=== PATIENT | female | born 1945 | race Caucasian/White ===

== ENCOUNTER 2019-03-22 05:22 | Inpatient (IN) | payer MEDICARE, MEDICAID ==
[~2019-03-22] VITALS: Ht 170.2 cm; Wt 58.2 kg
[~2019-03-22 05:22] MED LIST: BACL10TA2 PO; BUTA1CAP17; DIL100C PO; ERGO500014 PO; FURO-150 PO; HYDR-4353 PO; LEVO50TA8 PO; LOP25T PO; LORA1TAB PO; LORA2TAB PO; MAGN400T28 PO; MECL-111 PO; METO10TA3 PO; OXYC-657 PO; PRED20TA PO; PREG150C PO; VALS40TA2 PO; [UNRECOGNIZED DRUG - CODE] PO
[2019-03-22] MEDS ORDERED: ondansetron/PF 4mg/2ml inj IV ONE (05:50)
[2019-03-22] MEDS ORDERED: normal saline 1000ML IV soln IVB ONE ×2 (05:50→06:25)
[2019-03-22] MEDS ORDERED: morphine 4 MG/ML inj SYRINge IV PRN (05:50)
[2019-03-22 06:23] LABS: BASOPHILS % (AUTO) 0.4 % (0-1); EOSINOPHILS % (AUTO) 0.7 % (0-6); HEMATOCRIT 34.1 % (35.0-45.0); HEMOGLOBIN 11.8 g/dl (12.0-16.0); LYMPHOCYTES # (AUTO) 0.4 X10'3 (1.1-4.8); LYMPHOCYTES % (AUTO) 8.8 % (21-51); MEAN CORPUSCULAR HEMOGLOBIN 33.2 PG (27.0-31.0); MEAN CORPUSCULAR HGB CONC 34.8 g/dL (33.0-36.5); MEAN CORPUSCULAR VOLUME 95.4 FL (78-98); MEAN PLATELET VOLUME 9.3 FL (7.4-10.4); MONOCYTES # (AUTO) 0.3 X10'3 (0-0.9); MONOCYTES % (AUTO) 5.8 % (2-12); NEUTROPHILS # (AUTO) 4.2 X10'3 (1.8-7.7); NEUTROPHILS % (AUTO) 84.3 % (42-75); PLATELET COUNT 193 X10'3 (140-440); RED BLOOD COUNT 3.57 X10'6 (4.20-5.60); RED CELL DISTRIBUTION WIDTH 12.4 % (11.5-14.5)
[2019-03-22 06:52] LABS: CLARITY,URINE CLEAR (Clear); COLOR,URINE YELLOW (Yellow); GLUCOSE, URINE NEGATIVE (Neg); KETONES,URINE NEGATIVE (Neg); LEUKOCYTE ESTERASE ,URINE NEGATIVE (Neg); NITRITES, URINE NEGATIVE (Neg); OCCULT BLOOD,URINE NEGATIVE (Neg); PROTEIN,URINE NEGATIVE (Neg); UROBILINOGEN,URINE 0.2 E.U/dL (0.2-1.0)
[2019-03-22 06:54] LABS: UA COLLECTION TYPE CLN CATCH MIDSTREAM
[2019-03-22] MEDS ORDERED: piperacillin/tazo 3.375gm/50ml 50 ML IV ONE (07:00)
[2019-03-22] MEDS ORDERED: HYDROmorphone inj. 0.5 MG/0.5 ML DISP.SYRIN IV ONE (08:05)
[2019-03-22 08:38] LABS: ALANINE AMINOTRANSFERASE 17 U/L (12-78); ALBUMIN 3.7 G/DL (3.4-5.0); ALBUMIN/GLOBULIN RATIO 1.2 (1.1-1.5); ALKALINE PHOSPHATASE 95 IU/L (46-116); ANION GAP 9 (8-16); ASPARTATE AMINO TRANSFERASE 13 U/L (10-37); BILIRUBIN,TOTAL 0.3 MG/DL (0.1-1.0); BLOOD UREA NITROGEN 13 MG/DL (7-18); CALCIUM 8.4 MG/DL (8.5-10.1); CHLORIDE 102 MMOL/L (99-107); CREATININE 1.08 MG/DL (0.40-0.90); GLUCOSE 105 MG/DL (70-104); LIPASE 137 U/L (73-393); POTASSIUM 4.1 MMOL/L (3.5-5.1); SODIUM 135 MMOL/L (135-145); TOTAL CARBON DIOXIDE 24.5 MMOL/L (24-32); TOTAL PROTEIN 6.7 G/DL (6.4-8.2); eGFR 50 ML/MIN
[2019-03-22] MEDS ORDERED: diphenhydrAMINE 50 mg/ml inj IV PRN (10:40)
[2019-03-22] MEDS ORDERED: mag hydrox/Alum hydrox/simeth 30ml oral suspension PO PRN (10:40)
[2019-03-22] MEDS ORDERED: HYDROmorphone inj. 0.5 MG/0.5 ML DISP.SYRIN IV PRN (10:40)
[2019-03-22] MEDS ORDERED: bisacodyl 10mg suppository rectal RC PRN (10:40)
[2019-03-22] MEDS ORDERED: magnesium 4gm in 100ml NS 100 ML IV PRN (10:40)
[2019-03-22] MEDS ORDERED: potassium Cl 20 mEq SR tablet PO PRN ×2 (10:40)
[2019-03-22] MEDS ORDERED: HYDROcodone/acetaminophen 5mg/325mg tablet PO PRN (10:40)
[2019-03-22] MEDS ORDERED: magnesium Cl slow-release 64mg tablet PO PRN (10:40)
[2019-03-22] MEDS ORDERED: metoclopramide 5 mg/ml inj IV PRN (10:40)
[2019-03-22] MEDS ORDERED: magnesium hydroxide 30ml (MOM) UD suspension PO PRN (10:40)
[2019-03-22] MEDS ORDERED: magnesium 2GM in 50ml NS 50 ML IV PRN (10:40)
[2019-03-22] MEDS ORDERED: acetaminophen 325mg tablet PO PRN ×2 (10:40)
[2019-03-22] MEDS ORDERED: acetaminophen 650mg rectal suppository RC PRN (10:40)
[2019-03-22] MEDS ORDERED: potassium CL 10mEq/100ml bag 100 ML IV PRN ×2 (10:40)
[2019-03-22] MEDS ORDERED: TERI2.4P SQ (11:23)
[2019-03-22] MEDS ORDERED: PRED10TA PO (11:23)
[2019-03-22] MEDS ORDERED: BUPR1PAT9 TOP (11:25)
[2019-03-22] MEDS: HYDROcodone/acetaminophen 10/325mg tab PO PRN (11:59)
--- NOTE | 2019-03-22 12:33 | NUR ---
Patient in room ED 6. I have received report from KENNY Downing and had the opportunity to ask questions and assume patient care. Addendum: 03/22/19 at 1234 by Luis Fernando Erickson RN Awaiting patient arrival to room 355b.
[2019-03-22 12:45] VITALS: BP 137/65
--- NOTE | 2019-03-22 12:45 | NUR ---
received patient to room 355a via wheelchair accompanied by x1 staff. patient a&o and oriented to room and call light. call light within patient's reach. she does c/o abd pain that is 7/10. norco was given in er prior to transfer and patient states has been ineffective. will administer pain med as ordered.
[2019-03-22] MEDS: HYDROmorphone 1 mg/ml syringe IV PRN ×2 (12:52→20:57)
[2019-03-22] MEDS ORDERED: ERGO500056 PO (13:15)
[2019-03-22] MEDS ORDERED: BUPRENORPHINE TP SCH (13:55)
[2019-03-22] MEDS ORDERED: meclizine 12.5mg tablet PO PRN (13:55)
[2019-03-22] MEDS ORDERED: metoclopramide 10mg tablet PO PRN (13:55)
[2019-03-22] MEDS: ringers solution, lacted 1,000 ML IV SCH (14:04)
[2019-03-22] MEDS ORDERED: butalbital/acetaminophen/caffeine (Fioricet) tablet PO PRN (14:10)
[2019-03-22] MEDS: piperacillin/tazo 3.375gm/50ml 50 ML IV SCH ×2 (16:15→23:39)
[2019-03-22] MEDS: ondansetron/PF 4mg/2ml inj IV PRN (18:21)
--- NOTE | 2019-03-22 18:29 | NUR ---
Problems reprioritized. Patient report given, questions answered & plan of care reviewed with KENNY Canela.
--- NOTE | 2019-03-22 18:33 | NUR ---
Patient in room RANJIT 355. I have received report from KENNY Ellis and had the opportunity to ask questions and assume patient care. Addendum: 03/22/19 at 1835 by Hilton Handy RN Report was received from KENNY Gould
[2019-03-22] MEDS: docusate sod 100mg capsule PO SCH (19:44)
[2019-03-22] MEDS: metoprolol tartrate 12.5mg (1/2 tablet) PO SCH (19:44)
[2019-03-22 20:00] VITALS: BP 139/71
[2019-03-22] MEDS ORDERED: metoprolol tartrate 25mg tablet PO SCH (20:00)
[2019-03-22] MEDS: K and/or MAG REPLACEMENT MC SCH (20:00)
[2019-03-22] MEDS: phenytoin sod ER 100mg capsule PO SCH (20:55)
[2019-03-22] MEDS: temazepam 15mg capsule PO PRN (20:55)
[2019-03-22] MEDS ORDERED: temazepam 15mg capsule PO PRN (21:00)
[2019-03-22] MEDS: diphenhydrAMINE 25mg capsule PO PRN (22:10)
[2019-03-23 00:36] VITALS: BP 123/66
[2019-03-23] MEDS: butalbital/acetaminophen/caffeine (Fioricet) tablet PO PRN ×3 (01:07→22:37)
[2019-03-23] MEDS: ringers solution, lacted 1,000 ML IV SCH ×2 (01:33→14:45)
[2019-03-23] MEDS: HYDROmorphone 1 mg/ml syringe IV PRN ×5 (03:17→22:10)
[2019-03-23] MEDS: diphenhydrAMINE 25mg capsule PO PRN ×2 (04:19→17:16)
--- NOTE | 2019-03-23 06:00 | NUR ---
Problems reprioritized. Patient report given, questions answered & plan of care reviewed with KENNY Gould.
--- NOTE | 2019-03-23 06:24 | NUR ---
Patient in room RANJIT 355. I have received report from KENNY Canela and had the opportunity to ask questions and assume patient care.
[2019-03-23 07:00] VITALS: BP 132/76
[2019-03-23] MEDS: prednisone 10mg tablet PO SCH (07:48)
[2019-03-23] MEDS: levoTHYROXINE 25mcg tablet PO SCH (07:48)
[2019-03-23] MEDS: metoprolol tartrate 12.5mg (1/2 tablet) PO SCH ×2 (07:48→20:36)
[2019-03-23] MEDS: piperacillin/tazo 3.375gm/50ml 50 ML IV SCH ×2 (07:48→15:13)
[2019-03-23] MEDS: docusate sod 100mg capsule PO SCH ×2 (07:48→20:36)
[2019-03-23] MEDS: magnesium oxide 400mg tablet PO SCH (07:48)
[2019-03-23] MEDS: enoxaparin 40mg/0.4ml syringe SQ SCH (07:49)
[2019-03-23] MEDS: K and/or MAG REPLACEMENT MC SCH ×2 (07:50→20:00)
[2019-03-23] MEDS: baclofen 10mg tablet PO PRN ×2 (09:22→20:37)
[2019-03-23 09:30] LABS: BASOPHILS % (AUTO) 1.1 % (0-1); EOSINOPHILS # (AUTO) 0.1 X10'3 (0-0.9); EOSINOPHILS % (AUTO) 1.9 % (0-6); HEMATOCRIT 30.1 % (35.0-45.0); HEMOGLOBIN 10.4 g/dl (12.0-16.0); LYMPHOCYTES # (AUTO) 0.5 X10'3 (1.1-4.8); LYMPHOCYTES % (AUTO) 15.3 % (21-51); MEAN CORPUSCULAR HGB CONC 34.7 g/dL (33.0-36.5); MEAN CORPUSCULAR VOLUME 95.1 FL (78-98); MEAN PLATELET VOLUME 7.7 FL (7.4-10.4); MONOCYTES # (AUTO) 0.4 X10'3 (0-0.9); MONOCYTES % (AUTO) 9.9 % (2-12); NEUTROPHILS # (AUTO) 2.6 X10'3 (1.8-7.7); NEUTROPHILS % (AUTO) 71.8 % (42-75); PLATELET COUNT 178 X10'3 (140-440); RED BLOOD COUNT 3.16 X10'6 (4.20-5.60); RED CELL DISTRIBUTION WIDTH 12.5 % (11.5-14.5); WHITE BLOOD COUNT 3.6 X10'3 (4.5-11.0)
[2019-03-23 09:53] LABS: ALANINE AMINOTRANSFERASE 20 U/L (12-78); ALBUMIN 3.5 G/DL (3.4-5.0); ALBUMIN/GLOBULIN RATIO 1.1 (1.1-1.5); ALKALINE PHOSPHATASE 85 IU/L (46-116); ANION GAP 8 (8-16); ASPARTATE AMINO TRANSFERASE 26 U/L (10-37); BILIRUBIN,TOTAL 0.3 MG/DL (0.1-1.0); BLOOD UREA NITROGEN 5 MG/DL (7-18); BUN/CREATININE RATIO 4.7 (6.6-38.0); CALCIUM 8.4 MG/DL (8.5-10.1); CHLORIDE 100 MMOL/L (99-107); CREATININE 1.07 MG/DL (0.40-0.90); GLUCOSE 134 MG/DL (70-104); MAGNESIUM 1.5 MG/DL (1.5-2.4); PHOSPHORUS 2.9 MG/DL (2.3-4.5); POTASSIUM 3.5 MMOL/L (3.5-5.1); SODIUM 135 MMOL/L (135-145); TOTAL CARBON DIOXIDE 26.8 MMOL/L (24-32); TOTAL PROTEIN 6.6 G/DL (6.4-8.2); eGFR 50 ML/MIN
[2019-03-23 11:00] VITALS: BP 131/72
[2019-03-23] MEDS: losartan 25mg tablet PO SCH (11:48)
[2019-03-23] MEDS: HYDROcodone/acetaminophen 10/325mg tab PO PRN ×2 (11:49→20:36)
[2019-03-23] MEDS: ondansetron/PF 4mg/2ml inj IV PRN (14:45)
[2019-03-23] MEDS ORDERED: LORazepam 0.5 MG tablet PO PRN (15:00)
--- NOTE | 2019-03-23 15:25 | NUR ---
Malnutrition Consult: Pt admitted for colitis with decreased appetite and vomiting last few weeks with no edema. Pt well nourished and well developed per MD. RD visited pt at bedside. Pt does not appear to have visible fat or muscle wasting. Pt states that diagnosed with IBS 10 years ago and with colitis for 4 years. Pt states a weight loss of 84 pounds in a year, however states that her UBW prior to her shelter a few years ago is 130-140 pounds. Pt reports weight gain occurred after retiring up to 170 pounds and lost the weight and is back at her UBW. Pt states that she is not concerned about weight loss. Pt does not meet minimum criteria for malnutrition at this time. Pt agrees to strawberry and chocolate flavored Ensure Enlive TIDWM once diet is advanced. RD provided pt with a written low-FODMAP education handout and RD contact information with verbal review. Pt encouraged to eat foods on the "recommended" list and slowly introduce the food on the "not recommended" list one at a time to determine the foods that trigger the IBS symptoms. Will continue to follow. Addendum: 03/23/19 at 1526 by Wing Neyda ROBBINS Amended: Links added. Addendum: 03/23/19 at [address] ITZEL agree with international sales representative note
[2019-03-23] MEDS ORDERED: BUPRENORPHINE TP SCH (16:00)
--- NOTE | 2019-03-23 19:00 | NUR ---
Problems reprioritized. Patient report given, questions answered & plan of care reviewed with rufino weathers.
--- NOTE | 2019-03-23 19:01 | NUR ---
Patient in room RANJ[facility] 355. I have received report from JENS COX and had the opportunity to ask questions and assume patient care.
[2019-03-23 20:00] VITALS: BP 123/60
[2019-03-23] MEDS: phenytoin sod ER 100mg capsule PO SCH (20:35)
[2019-03-23] MEDS: temazepam 15mg capsule PO PRN (22:09)
[2019-03-24] VITALS: BP 95/53
[2019-03-24] MEDS: piperacillin/tazo 3.375gm/50ml 50 ML IV SCH ×2 (00:21→08:41)
[2019-03-24] MEDS: ondansetron/PF 4mg/2ml inj IV PRN ×2 (03:18→12:11)
[2019-03-24] MEDS: ringers solution, lacted 1,000 ML IV SCH (03:21)
[2019-03-24] MEDS: HYDROmorphone 1 mg/ml syringe IV PRN (03:22)
[2019-03-24 05:53] LABS: BASOPHILS % (AUTO) 0.6 % (0-1); EOSINOPHILS # (AUTO) 0.1 X10'3 (0-0.9); EOSINOPHILS % (AUTO) 3.8 % (0-6); HEMATOCRIT 32.5 % (35.0-45.0); HEMOGLOBIN 11.2 g/dl (12.0-16.0); LYMPHOCYTES # (AUTO) 0.9 X10'3 (1.1-4.8); LYMPHOCYTES % (AUTO) 27.1 % (21-51); MEAN CORPUSCULAR HEMOGLOBIN 33.1 PG (27.0-31.0); MEAN CORPUSCULAR HGB CONC 34.5 g/dL (33.0-36.5); MEAN CORPUSCULAR VOLUME 95.9 FL (78-98); MEAN PLATELET VOLUME 7.8 FL (7.4-10.4); MONOCYTES # (AUTO) 0.4 X10'3 (0-0.9); MONOCYTES % (AUTO) 13.7 % (2-12); NEUTROPHILS # (AUTO) 1.8 X10'3 (1.8-7.7); NEUTROPHILS % (AUTO) 54.8 % (42-75); PLATELET COUNT 138 X10'3 (140-440); RED BLOOD COUNT 3.39 X10'6 (4.20-5.60); RED CELL DISTRIBUTION WIDTH 12.5 % (11.5-14.5); WHITE BLOOD COUNT 3.2 X10'3 (4.5-11.0)
--- NOTE | 2019-03-24 06:31 | NUR ---
Problems reprioritized. Patient report given, questions answered & plan of care reviewed with MIKE COX.
--- NOTE | 2019-03-24 06:33 | NUR ---
Patient in room [facility]ANJIT 355. I have received report from KENNY Padron and had the opportunity to ask questions and assume patient care.
[2019-03-24 07:00] VITALS: BP 128/71
[2019-03-24 07:08] LABS: ALANINE AMINOTRANSFERASE 21 U/L (12-78); ALBUMIN 3.5 G/DL (3.4-5.0); ALBUMIN/GLOBULIN RATIO 1.2 (1.1-1.5); ALKALINE PHOSPHATASE 83 IU/L (46-116); ANION GAP 7 (8-16); ASPARTATE AMINO TRANSFERASE 22 U/L (10-37); BILIRUBIN,TOTAL 0.2 MG/DL (0.1-1.0); BLOOD UREA NITROGEN 6 MG/DL (7-18); BUN/CREATININE RATIO 5.8 (6.6-38.0); CALCIUM 8.2 MG/DL (8.5-10.1); CHLORIDE 101 MMOL/L (99-107); CREATININE 1.03 MG/DL (0.40-0.90); GLUCOSE 89 MG/DL (70-104); MAGNESIUM 1.7 MG/DL (1.5-2.4); PHOSPHORUS 3.4 MG/DL (2.3-4.5); SODIUM 137 MMOL/L (135-145); TOTAL CARBON DIOXIDE 29.1 MMOL/L (24-32); TOTAL PROTEIN 6.4 G/DL (6.4-8.2); eGFR 53 ML/MIN
[2019-03-24] MEDS ORDERED: TERIPARATIDE 20 MCG SQ SCH (08:00)
[2019-03-24] MEDS: K and/or MAG REPLACEMENT MC SCH (08:00)
[2019-03-24] MEDS: docusate sod 100mg capsule PO SCH (08:40)
[2019-03-24] MEDS: losartan 25mg tablet PO SCH (08:40)
[2019-03-24] MEDS: magnesium oxide 400mg tablet PO SCH (08:41)
[2019-03-24] MEDS: levoTHYROXINE 25mcg tablet PO SCH (08:41)
[2019-03-24] MEDS: metoprolol tartrate 12.5mg (1/2 tablet) PO SCH (08:41)
[2019-03-24] MEDS: prednisone 10mg tablet PO SCH (08:41)
[2019-03-24] MEDS: enoxaparin 40mg/0.4ml syringe SQ SCH (08:42)
[2019-03-24] MEDS: butalbital/acetaminophen/caffeine (Fioricet) tablet PO PRN (09:01)
[2019-03-24] MEDS ORDERED: AMOX-580 PO (10:51)
[2019-03-24 11:30] VITALS: BP 109/60
[2019-03-24] MEDS: HYDROcodone/acetaminophen 10/325mg tab PO PRN (12:11)
--- NOTE | 2019-03-24 13:46 | NUR ---
Pt discharged to home at 1340, with all belongings. Discharge instructions and medications reviewed. New prescription e-scripted to [facility] on [address] IV DC'd, cannula intact. Pt escorted to front lobby via wheelchair.
== END 2019-03-24 13:39 | disposition home or self-care (01) | DRG 391 ==
LOC: ER 05:22 → ED HOLD 10:50 → SUR 3N 12:42
PROVIDERS: ADMIT Family Medicine; ATTEND Family Medicine
DX: A09 Infectious gastroenteritis and colitis, unspecified (principal); N17.0 Acute kidney failure with tubular necrosis; E06.3 Autoimmune thyroiditis; G89.4 Chronic pain syndrome; D64.9 Anemia, unspecified; E86.0 Dehydration; F41.1 Generalized anxiety disorder; G40.909 Epilepsy, unspecified, not intractable, without status epilepticus; I10 Essential (primary) hypertension; G43.909 Migraine, unspecified, not intractable, without status migrainosus; K58.9 Irritable bowel syndrome, unspecified; M19.90 Unspecified osteoarthritis, unspecified site; M50.30 Other cervical disc degeneration, unspecified cervical region; R07.89 Other chest pain; M79.7 Fibromyalgia; M81.0 Age-related osteoporosis without current pathological fracture; Z79.52 Long term (current) use of systemic steroids; Z79.890 Hormone replacement therapy; Z85.828 Personal history of other malignant neoplasm of skin; Z90.49 Acquired absence of other specified parts of digestive tract; Z90.710 Acquired absence of both cervix and uterus; Z88.1 Allergy status to other antibiotic agents; Z88.5 Allergy status to narcotic agent; Z82.5 Family history of asthma and other chronic lower respiratory diseases; Z82.41 Family history of sudden cardiac death; Z82.49 Family history of ischemic heart disease and other diseases of the circulatory system; Z87.891 Personal history of nicotine dependence; Z79.899 Other long term (current) drug therapy
CPT/HCPCS: 36415; 74176; 80053; 80185; 81003; 83605; 83690; 83735; 84100; 84145; 84484; 85025; 87040; 87081; 93005; 96365; 96375; 97110; 97116; 97161; 99285; G0378; J1170; J1650; J2270; J2405; J2543; J7120; J7512; Q0163

== ENCOUNTER 2020-04-05 09:53 | Observation (INO) | payer MEDICARE, MEDICAID ==
[~2020-04-05] VITALS: Ht 172.7 cm; Wt 59.1 kg
[~2020-04-05 09:53] MED LIST changes: +BUPR1PAT9 TOP; -BUTA1CAP17; -FURO-150 PO; -HYDR-4353 PO; -LORA1TAB PO; -LORA2TAB PO; -MECL-111 PO; +MECL-159 PO; -OXYC-657 PO; +PRED10TA PO; -PRED20TA PO; -PREG150C PO; +TERI2.4P SQ
[2020-04-05 10:26] LABS: BASOPHILS % (AUTO) 0.5 % (0-1); EOSINOPHILS % (AUTO) 0.1 % (0-6); HEMATOCRIT 36.8 % (35.0-45.0); HEMOGLOBIN 12.7 g/dl (12.0-16.0); LYMPHOCYTES # (AUTO) 0.8 X10'3 (1.1-4.8); LYMPHOCYTES % (AUTO) 11.3 % (21-51); MEAN CORPUSCULAR HEMOGLOBIN 33.6 PG (27.0-31.0); MEAN CORPUSCULAR HGB CONC 34.5 g/dL (33.0-36.5); MEAN CORPUSCULAR VOLUME 97.3 FL (78-98); MONOCYTES # (AUTO) 0.4 X10'3 (0-0.9); MONOCYTES % (AUTO) 5.7 % (2-12); NEUTROPHILS # (AUTO) 5.5 X10'3 (1.8-7.7); NEUTROPHILS % (AUTO) 82.4 % (42-75); PLATELET COUNT 168 X10'3 (140-440); RED BLOOD COUNT 3.79 X10'6 (4.20-5.60); RED CELL DISTRIBUTION WIDTH 12.8 % (11.5-14.5); WHITE BLOOD COUNT 6.7 X10'3 (4.5-11.0)
[2020-04-05 10:42] LABS: ALANINE AMINOTRANSFERASE 20 U/L (12-78); ALBUMIN 3.7 G/DL (3.4-5.0); ALBUMIN/GLOBULIN RATIO 1.1 (1.1-1.5); ALKALINE PHOSPHATASE 81 IU/L (46-116); ANION GAP 6 (8-16); ASPARTATE AMINO TRANSFERASE 15 U/L (10-37); BILIRUBIN,TOTAL 0.3 MG/DL (0.1-1.0); BLOOD UREA NITROGEN 22 MG/DL (7-18); BUN/CREATININE RATIO 17.9 (6.6-38.0); CALCIUM 8.9 MG/DL (8.5-10.1); CHLORIDE 103 MMOL/L (99-107); CREATININE 1.23 MG/DL (0.40-0.90); GLUCOSE 129 MG/DL (70-104); POTASSIUM 4.3 MMOL/L (3.5-5.1); SODIUM 137 MMOL/L (135-145); TOTAL CARBON DIOXIDE 27.7 MMOL/L (24-32); TOTAL PROTEIN 7.2 G/DL (6.4-8.2); eGFR 43 ML/MIN
[2020-04-05 11:38] LABS: CLARITY,URINE CLEAR (Clear); COLOR,URINE STRAW (Yellow); GLUCOSE, URINE NEGATIVE (Neg); KETONES,URINE NEGATIVE (Neg); LEUKOCYTE ESTERASE ,URINE NEGATIVE (Neg); NITRITES, URINE NEGATIVE (Neg); OCCULT BLOOD,URINE TRACE-LYSED (Neg); PROTEIN,URINE NEGATIVE (Neg); UROBILINOGEN,URINE 0.2 E.U/dL (0.2-1.0)
[2020-04-05 11:40] LABS: UA COLLECTION TYPE CLN CATCH MIDSTREAM
[2020-04-05 11:49] LABS: SQUAMOUS EPITHELIAL CELL,UR MODERATE /LPF (FEW)
[2020-04-05 11:52] LABS: BACTERIA,URINE FEW /HPF (Neg); RBC,URINE 0-2 /HPF (0-2); WBC,URINE 0-4 /HPF (0-4)
--- NOTE | 2020-04-05 12:11 | NUR ---
Pt assisted to the bedside commode to void. Pt is shaky and unsteady on her feet with transfer from the gurney to the commode and back to the gurney.
[2020-04-05] MEDS ORDERED: acetaminophen 325mg tablet PO ONE (12:30)
--- NOTE | 2020-04-05 12:49 | NUR ---
Pt requesting something for her anxiety. PA aware. Awaiting orders.
[2020-04-05] MEDS ORDERED: LORazepam 2 mg/ml vial IV ONE (13:15)
[2020-04-05] MEDS ORDERED: normal saline 1000ML IV soln IVB ONE (13:15)
[2020-04-05] MEDS ORDERED: LOSA50TA64 PO (14:58)
[2020-04-05] MEDS ORDERED: OMEP-50 PO (14:58)
[2020-04-05] MEDS ORDERED: TRAM50TA2 PO (14:58)
[2020-04-05] MEDS ORDERED: ONDA-103 PO (14:58)
[2020-04-05] MEDS ORDERED: CYAN10007 IM (14:58)
[2020-04-05] MEDS ORDERED: FURO20TA4 PO (14:58)
[2020-04-05] MEDS ORDERED: ERGO500054 PO (14:58)
[2020-04-05] MEDS ORDERED: traMADol 50MG tablet PO ONE (16:10)
[2020-04-05] MEDS ORDERED: ondansetron/PF 4mg/2ml inj IV PRN (17:10)
[2020-04-05] MEDS ORDERED: HYDROmorphone inj. 0.5 MG/0.5 ML DISP.SYRIN IV PRN (17:10)
[2020-04-05] MEDS ORDERED: magnesium Cl slow-release 64mg tablet PO PRN (17:10)
[2020-04-05] MEDS ORDERED: magnesium 4gm in 100ml NS 100 ML IV PRN (17:10)
[2020-04-05] MEDS ORDERED: magnesium 2GM in 50ml NS 50 ML IV PRN (17:10)
[2020-04-05] MEDS ORDERED: potassium Cl 20 mEq SR tablet PO PRN ×2 (17:10)
[2020-04-05] MEDS ORDERED: acetaminophen 325mg tablet PO PRN ×2 (17:10)
[2020-04-05] MEDS ORDERED: potassium Cl 40MEQ/1/2NS 520ml 520 ML IV PRN ×2 (17:10)
[2020-04-05] MEDS ORDERED: magnesium hydroxide 30ml (MOM) UD suspension PO PRN (17:10)
[2020-04-05] MEDS ORDERED: HYDROcodone/acetaminophen 5mg/325mg tablet PO PRN (17:10)
[2020-04-05] MEDS ORDERED: mag hydrox/Alum hydrox/simeth 30ml oral suspension PO PRN (17:10)
[2020-04-05] MEDS ORDERED: bisacodyl 10mg suppository rectal RC PRN (17:10)
[2020-04-05] MEDS ORDERED: baclofen 10mg tablet PO PRN (17:25)
[2020-04-05] MEDS ORDERED: traMADol 50MG tablet PO PRN (17:25)
[2020-04-05] MEDS: normal saline 1000ml 1,000 ML IV SCH ×2 (18:00→23:06)
[2020-04-05 18:09] LABS: C-REACTIVE PROTEIN 0.29 MG/DL (0.0-0.5); PHENYTOIN (DILANTIN) 13.7 UG/ML (10.0-20.0); PHOSPHORUS 2.3 MG/DL (2.3-4.5)
--- NOTE | 2020-04-05 19:15 | NUR ---
Pt assisted to the bedside commode to void urine again. Pt is requesting fioricet for her headache.
[2020-04-05] MEDS: K and/or MAG REPLACEMENT MC SCH (20:00)
[2020-04-05] MEDS ORDERED: temazepam 15mg capsule PO PRN (21:00)
[2020-04-05] MEDS ORDERED: phenytoin sod ER 100mg capsule PO SCH (21:00)
[2020-04-05] MEDS: metoprolol tartrate 12.5mg (1/2 tablet) PO SCH (21:15)
[2020-04-05] MEDS: heparin, porcine 5000 units/ml vial SQ SCH (21:17)
--- NOTE | 2020-04-05 22:30 | NUR ---
Patient in room [facility]ANJ[facility] 340. I have received report from KENNY Washington and had the opportunity to ask questions and assume patient care.
[2020-04-05] MEDS: HYDROcodone/acetaminophen 10/325mg tab PO PRN (23:04)
[2020-04-05] MEDS: LORazepam 1 MG tablet PO PRN (23:05)
[2020-04-06 00:55] VITALS: BP 115/59
[2020-04-06] MEDS: normal saline 1000ml 1,000 ML IV SCH (05:16)
[2020-04-06] MEDS: HYDROcodone/acetaminophen 10/325mg tab PO PRN (05:33)
[2020-04-06] MEDS: LORazepam 1 MG tablet PO PRN (05:33)
[2020-04-06 06:10] LABS: BASOPHILS % (AUTO) 0.5 % (0-1); EOSINOPHILS # (AUTO) 0.1 X10'3 (0-0.9); EOSINOPHILS % (AUTO) 3.1 % (0-6); HEMATOCRIT 33.3 % (35.0-45.0); HEMOGLOBIN 11.4 g/dl (12.0-16.0); LYMPHOCYTES # (AUTO) 1.1 X10'3 (1.1-4.8); LYMPHOCYTES % (AUTO) 23.5 % (21-51); MEAN CORPUSCULAR HEMOGLOBIN 33.3 PG (27.0-31.0); MEAN CORPUSCULAR HGB CONC 34.3 g/dL (33.0-36.5); MEAN CORPUSCULAR VOLUME 97.1 FL (78-98); MEAN PLATELET VOLUME 8.5 FL (7.4-10.4); MONOCYTES # (AUTO) 0.5 X10'3 (0-0.9); MONOCYTES % (AUTO) 11.1 % (2-12); NEUTROPHILS # (AUTO) 2.8 X10'3 (1.8-7.7); NEUTROPHILS % (AUTO) 61.8 % (42-75); PLATELET COUNT 136 X10'3 (140-440); RED BLOOD COUNT 3.43 X10'6 (4.20-5.60); RED CELL DISTRIBUTION WIDTH 12.8 % (11.5-14.5); WHITE BLOOD COUNT 4.5 X10'3 (4.5-11.0)
[2020-04-06 06:23] LABS: ALANINE AMINOTRANSFERASE 18 U/L (12-78); ALBUMIN 3.3 G/DL (3.4-5.0); ALBUMIN/GLOBULIN RATIO 1.1 (1.1-1.5); ALKALINE PHOSPHATASE 65 IU/L (46-116); ANION GAP 4 (8-16); ASPARTATE AMINO TRANSFERASE 14 U/L (10-37); BILIRUBIN,TOTAL 0.3 MG/DL (0.1-1.0); BLOOD UREA NITROGEN 13 MG/DL (7-18); BUN/CREATININE RATIO 13.3 (6.6-38.0); CALCIUM 8.1 MG/DL (8.5-10.1); CHLORIDE 103 MMOL/L (99-107); CREATININE 0.98 MG/DL (0.40-0.90); GLUCOSE 97 MG/DL (70-104); MAGNESIUM 1.7 MG/DL (1.5-2.4); PHOSPHORUS 2.5 MG/DL (2.3-4.5); SODIUM 136 MMOL/L (135-145); TOTAL CARBON DIOXIDE 28.6 MMOL/L (24-32); TOTAL PROTEIN 6.3 G/DL (6.4-8.2); eGFR 55 ML/MIN
--- NOTE | 2020-04-06 06:49 | NUR ---
I agree with KENNY De Dios (Orientee) documentation and report that was given to KENNY Munoz
--- NOTE | 2020-04-06 06:51 | NUR ---
Patient in room [facility] 340. I have received report from Va COX and had the opportunity to ask questions and assume patient care.
[2020-04-06 07:00] VITALS: BP 135/79
[2020-04-06] MEDS ORDERED: levoTHYROXINE 25mcg tablet PO SCH (07:00)
[2020-04-06] MEDS ORDERED: pantoprazole 40mg Tablet.DR PO SCH (07:30)
[2020-04-06] MEDS ORDERED: prednisone 10mg tablet PO SCH (08:00)
[2020-04-06] MEDS: K and/or MAG REPLACEMENT MC SCH (08:00)
[2020-04-06] MEDS ORDERED: magnesium oxide 400mg tablet PO SCH (08:00)
[2020-04-06] MEDS ORDERED: losartan 50mg tablet PO SCH (08:00)
[2020-04-06] MEDS ORDERED: predniSONE 20 mg tablet PO SCH (08:00)
[2020-04-06] MEDS: metoprolol tartrate 12.5mg (1/2 tablet) PO SCH (08:24)
[2020-04-06] MEDS: heparin, porcine 5000 units/ml vial SQ SCH (08:24)
--- NOTE | 2020-04-06 10:55 | NUR ---
RE: NS infusion/reassessment "not done" on previous shift. Found NS not running this a.m., PIV flushed and infusion restarted per MD orders.
[2020-04-06 12:00] VITALS: BP 131/81
--- NOTE | 2020-04-06 14:44 | NUR ---
Malnutrition Consult: Pt admit DX fevers, uncontrollable shaking, dehydration, NORI on CKD, and R neck mass. Hx jason's, IBS, and colitis w/ frequent diarrhea as a result. Noted pt home meds can cause diarrhea as well and takes B12, vitamin D at home per EMR. Pt has no scaled wt this admit however March 2019 admit one year prior pt reported wt gain to 170 pounds following senior care w/ subsequent intention loss to UBW 130-140 pounds. Current stated wt is 130 pounds which is pt baseline. Pt has normal strength, no edema/wounds, and appears well-developed/well-nourished per MD note. Does not meet minimum malnutrition criteria at this time. To f/u 04/10 for initial assessment. Addendum: 04/06/20 at [address] Amended: Links added.
--- NOTE | 2020-04-06 15:45 | NUR ---
Pt has been waiting for ride home by family member. Pt stable and appropriate for d/c. PIV d/c'd cannula intact. Reviewed with pt all d/c instructions and meds with pt given opportunity to ask questions, answers provided and pt verbalizing understanding. Pt to call PCP with any questions/concerns or s/sx of complications or return to the nearest ED. Escorted to front lobby by staff member via w/c with all personal belongings. D/c'd home in private vehicle driven by family member.
== END 2020-04-06 15:45 | disposition home or self-care (01) ==
LOC: ER 09:54 → ED HOLD 17:07 → SUR 3N 22:45
PROVIDERS: ADMIT Family Medicine; ATTEND Family Medicine
DX: R50.9 Fever, unspecified (principal); Z20.828 Contact with and (suspected) exposure to other viral communicable diseases; I12.9 Hypertensive chronic kidney disease with stage 1 through stage 4 chronic kidney disease, or unspecified chronic kidney disease; N18.9 Chronic kidney disease, unspecified; E86.0 Dehydration; N17.9 Acute kidney failure, unspecified; G40.909 Epilepsy, unspecified, not intractable, without status epilepticus; F41.1 Generalized anxiety disorder; E06.3 Autoimmune thyroiditis; G89.4 Chronic pain syndrome; G62.9 Polyneuropathy, unspecified; Z87.19 Personal history of other diseases of the digestive system; Z87.891 Personal history of nicotine dependence; Z86.74 Personal history of sudden cardiac arrest; Z90.710 Acquired absence of both cervix and uterus; Z79.899 Other long term (current) drug therapy; Z88.1 Allergy status to other antibiotic agents; Z88.5 Allergy status to narcotic agent
CPT/HCPCS: 36415; 71045; 74176; 80053; 80185; 81001; 83605; 83735; 84100; 84439; 84443; 84484; 85025; 85651; 86140; 87040; 87081; 87502; 87503; 87635; 93005; 96361; 96372; 96374; 96375; 97161; 97530; 97535; 99285; C9803; G0378; J1170; J1644; J2060; J7030; J7512

== ENCOUNTER 2020-04-09 16:53 | Inpatient (IN) | payer MEDICARE, MEDICAID ==
[~2020-04-09] VITALS: Ht 172.7 cm; Wt 59.1 kg
[2020-04-09] VITALS (9 sets, daily range): BP systolic 124–173; BP diastolic 68–98
[~2020-04-09 16:53] MED LIST changes: -BUPR1PAT9 TOP; +CYAN10007 IM; +ERGO500054 PO; +LOSA50TA64 PO; -MECL-159 PO; +OMEP-50 PO; +ONDA-103 PO; -TERI2.4P SQ; +TRAM50TA2 PO; -VALS40TA2 PO
[2020-04-09] MEDS ORDERED: HYDROmorphone 1 mg/ml syringe IV ONE (17:20)
[2020-04-09] MEDS ORDERED: normal saline 1000ML IV soln IVB ONE (17:20)
[2020-04-09] MEDS ORDERED: ondansetron/PF 4mg/2ml inj IV ONE (17:20)
[2020-04-09 17:42] LABS: BASOPHILS # (AUTO) 0.1 X10'3 (0-0.2); BASOPHILS % (AUTO) 0.4 % (0-1); EOSINOPHILS % (AUTO) 0.3 % (0-6); HEMATOCRIT 41.8 % (35.0-45.0); HEMOGLOBIN 14.2 g/dl (12.0-16.0); LYMPHOCYTES # (AUTO) 0.7 X10'3 (1.1-4.8); MEAN CORPUSCULAR HEMOGLOBIN 33.2 PG (27.0-31.0); MEAN CORPUSCULAR HGB CONC 34.1 g/dL (33.0-36.5); MEAN CORPUSCULAR VOLUME 97.5 FL (78-98); MEAN PLATELET VOLUME 7.9 FL (7.4-10.4); MONOCYTES # (AUTO) 1.1 X10'3 (0-0.9); MONOCYTES % (AUTO) 7.7 % (2-12); NEUTROPHILS # (AUTO) 12.6 X10'3 (1.8-7.7); NEUTROPHILS % (AUTO) 86.6 % (42-75); PLATELET COUNT 190 X10'3 (140-440); RED BLOOD COUNT 4.28 X10'6 (4.20-5.60); RED CELL DISTRIBUTION WIDTH 12.8 % (11.5-14.5); WHITE BLOOD COUNT 14.6 X10'3 (4.5-11.0)
[2020-04-09 17:54] LABS: ALANINE AMINOTRANSFERASE 32 U/L (12-78); ALBUMIN/GLOBULIN RATIO 1.1 (1.1-1.5); ALKALINE PHOSPHATASE 74 IU/L (46-116); ANION GAP 8 (8-16); ASPARTATE AMINO TRANSFERASE 27 U/L (10-37); BILIRUBIN,TOTAL 0.4 MG/DL (0.1-1.0); BLOOD UREA NITROGEN 20 MG/DL (7-18); BUN/CREATININE RATIO 13.5 (6.6-38.0); CHLORIDE 95 MMOL/L (99-107); CREATININE 1.48 MG/DL (0.40-0.90); GLUCOSE 148 MG/DL (70-104); LIPASE 127 U/L (73-393); SODIUM 132 MMOL/L (135-145); TOTAL CARBON DIOXIDE 28.8 MMOL/L (24-32); TOTAL PROTEIN 7.5 G/DL (6.4-8.2); eGFR 34 ML/MIN
--- NOTE | 2020-04-09 18:39 | NUR ---
Pt resting in bed, notified she will be admitted, vitals taken pt in position of comfort.
[2020-04-09] MEDS ORDERED: ringers solution, lacted 1,000 ML IV SCH (18:50)
[2020-04-09] MEDS ORDERED: morphine 2 MG/ML inj. syringe IV PRN (18:50)
[2020-04-09] MEDS ORDERED: hydrALAZINE 20mg/ml inj. IV PRN (18:50)
[2020-04-09] MEDS ORDERED: ondansetron/PF 4mg/2ml inj IV PRN (18:50)
[2020-04-09] MEDS ORDERED: fentaNYL/PF 50MCG/1 ML 2ML syringe IV PRN (18:50)
[2020-04-09] MEDS ORDERED: labetalol 20mg/4ml (5mg/ml) syringe IV PRN (18:50)
[2020-04-09] MEDS ORDERED: magnesium hydroxide 30ml (MOM) UD suspension PO PRN (19:10)
[2020-04-09] MEDS ORDERED: magnesium Cl slow-release 64mg tablet PO PRN (19:10)
[2020-04-09] MEDS ORDERED: magnesium 4gm in 100ml NS 100 ML IV PRN (19:10)
[2020-04-09] MEDS ORDERED: acetaminophen 325mg tablet PO PRN (19:10)
[2020-04-09] MEDS ORDERED: mag hydrox/Alum hydrox/simeth 30ml oral suspension PO PRN (19:10)
[2020-04-09] MEDS ORDERED: magnesium 2GM in 50ml NS 50 ML IV PRN (19:10)
[2020-04-09] MEDS ORDERED: potassium Cl 40MEQ/1/2NS 520ml 520 ML IV PRN ×2 (19:10)
[2020-04-09] MEDS ORDERED: potassium Cl 20 mEq SR tablet PO PRN ×2 (19:10)
[2020-04-09] MEDS ORDERED: fentaNYL/PF 50MCG/1 ML 2ML syringe ONE ×2 (19:17→20:36)
[2020-04-09] MEDS ORDERED: midazolam 2 mg/2 ml injection ONE (19:17)
[2020-04-09] MEDS ORDERED: rocuronium 10mg/ml inj IV ONE ×2 (19:19→19:36)
[2020-04-09] MEDS ORDERED: neostigmine methylsulfate 1 MG/ML 10ml vial ONE (19:19)
[2020-04-09] MEDS ORDERED: glycopyrrolate 0.2mg/ml inj ONE (19:19)
[2020-04-09] MEDS ORDERED: LIDOcaine 2% (20mg/ml) 5ml vial ONE (19:19)
[2020-04-09] MEDS ORDERED: dexamethasone sod phosphate 4mg/ml inj. ONE (19:19)
[2020-04-09] MEDS ORDERED: propofol inj 20 ML IV ONE (19:19)
[2020-04-09] MEDS ORDERED: ondansetron/PF 4mg/2ml inj ONE (19:19)
--- NOTE | 2020-04-09 19:31 | NUR ---
Pt NG tube started, IV infiltrated so new IV in R AC, pt in gown, rapid covid swab done, pt in position of comfort with blanket given. Pt off to OR.
[2020-04-09] MEDS ORDERED: sevoflurane 250ml liquid IH ONE (19:36)
[2020-04-09] MEDS ORDERED: ceFOXitin 1000 MG inj ONE ×2 (19:39)
[2020-04-09] MEDS ORDERED: BUPIVAcaine/PF 2.5mg/ml (0.25%) 10ml vial ONE ×2 (20:03→20:05)
[2020-04-09] MEDS ORDERED: BUPIVACAINE liposomal/PF 13.3 MG/ML vial IM ONE (20:03)
[2020-04-09] MEDS ORDERED: FURO-150 PO (21:58)
--- NOTE | 2020-04-09 22:18 | NUR ---
Received from OR via , accompanied by Anesthesiologist DR FARRELL and report given by Anesthesiolgist. AWAKE AND C/O SEVERE ABD PAIN. WILL ADDRESS. VITALS STABLE. DRESSING DI. NG TO LIS. ABD SOFT.
[2020-04-09] MEDS ORDERED: proCHLORperazine 10 MG/2 ml inj IV PRN (22:30)
[2020-04-09] MEDS ORDERED: scopolamine 1.5mg patch.TD72 TD ONE (22:30)
[2020-04-09] MEDS ORDERED: proMETHazine 25mg rectal suppository RC PRN (22:30)
[2020-04-09] MEDS: fentaNYL/PF 50MCG/1 ML 2ML syringe IV PRN ×2 (22:30→22:35)
[2020-04-09] MEDS: morphine 4 MG/ML inj SYRINge IV PRN ×3 (22:42→22:50)
[2020-04-09] MEDS ORDERED: acetaminophen 1,000mg/100ml IV 100 ML IV ONE (22:55)
[2020-04-09] MEDS: K and/or MAG REPLACEMENT MC SCH (23:00)
--- NOTE | 2020-04-09 23:18 | NUR ---
Report called to receiving nurse. Transferred via BED Belongings . Special Issues communicated to receiving nurse. AWAKE AND ORIENTED. VITALS STABLE. DRESSING DI. STATES PAIN IMPROVING. TO SURGICAL RM 346B AT THIS TIME.
--- NOTE | 2020-04-09 23:30 | NUR ---
RECEIVED PT FROM PACU VIA HOSPITAL BED FOLLOWING VERBAL REPORT FROM
[2020-04-09] MEDS: morphine 2 MG/ML inj. syringe IV PRN (23:49)
[2020-04-09] MEDS: normal saline 1000ml 1,000 ML IV SCH (23:50)
[2020-04-10] VITALS (9 sets, daily range): BP systolic 95–128; BP diastolic 58–77
--- NOTE | 2020-04-10 | NUR ---
DR RAGSDALE NOTIFIED: PT DRESSING SATURATED WITH SANGUINEOUS DRAINAGE. ISLAND DRESSING REMOVED. INCISION UNAPPROXIMATED WITH ADIPOSE TISSUE VISIBLE. ORDERS OBTAINED TO PLACE DRY STERILE GAUZE OVER INCISION. ORDERS ALSO OBTAINED TO INITIATE DILAUDID SOFTWARE DESIGN MANAGER.
[2020-04-10] MEDS ORDERED: CADD PCA waste documentation MC PRN (00:10)
[2020-04-10] MEDS ORDERED: naloxone 0.4 mg/ml inj IV PRN (00:10)
[2020-04-10] MEDS: HYDROmorphone/NS 1 mg/ml CADD 50 ML IV SCH ×12 (01:08→23:00)
[2020-04-10] MEDS: ondansetron/PF 4mg/2ml inj IV PRN (01:12)
[2020-04-10] MEDS: piperacillin/tazo 3.375gm/50ml 50 ML IV SCH ×4 (01:16→23:57)
--- NOTE | 2020-04-10 03:00 | NUR ---
DR MUKHERJEE NOTIFIED: PT CONTINUES TO C/O NAUSEA WITH DRY HEAVES. ZOFRAN INEFFECTIVE AT THIS TIME. NG LIS, DRAINING WELL. ORDERS OBTAINED FOR COMPAZINE IV.
[2020-04-10] MEDS: proCHLORperazine 10 MG/2 ml inj IV PRN (03:28)
[2020-04-10] MEDS: normal saline 1000ml 1,000 ML IV SCH ×3 (05:10→19:57)
[2020-04-10] MEDS ORDERED: traMADol 50MG tablet PO PRN (05:15)
[2020-04-10] MEDS ORDERED: baclofen 10mg tablet PO PRN (05:15)
[2020-04-10 06:04] LABS: BASOPHILS % (AUTO) 0.1 % (0-1); EOSINOPHILS % (AUTO) 0 % (0-6); HEMATOCRIT 36.1 % (35.0-45.0); HEMOGLOBIN 12.1 g/dl (12.0-16.0); LYMPHOCYTES # (AUTO) 0.2 X10'3 (1.1-4.8); LYMPHOCYTES % (AUTO) 2.1 % (21-51); MEAN CORPUSCULAR HEMOGLOBIN 32.9 PG (27.0-31.0); MEAN CORPUSCULAR HGB CONC 33.6 g/dL (33.0-36.5); MEAN PLATELET VOLUME 8.3 FL (7.4-10.4); MONOCYTES # (AUTO) 0.7 X10'3 (0-0.9); MONOCYTES % (AUTO) 7.2 % (2-12); NEUTROPHILS # (AUTO) 9.4 X10'3 (1.8-7.7); NEUTROPHILS % (AUTO) 90.6 % (42-75); PLATELET COUNT 139 X10'3 (140-440); RED BLOOD COUNT 3.68 X10'6 (4.20-5.60); WHITE BLOOD COUNT 10.3 X10'3 (4.5-11.0)
[2020-04-10 06:29] LABS: ALANINE AMINOTRANSFERASE 37 U/L (12-78); ALBUMIN 2.7 G/DL (3.4-5.0); ALKALINE PHOSPHATASE 55 IU/L (46-116); ANION GAP 10 (8-16); ASPARTATE AMINO TRANSFERASE 33 U/L (10-37); BILIRUBIN,TOTAL 0.7 MG/DL (0.1-1.0); BLOOD UREA NITROGEN 18 MG/DL (7-18); BUN/CREATININE RATIO 13.7 (6.6-38.0); CALCIUM 7.4 MG/DL (8.5-10.1); CHLORIDE 103 MMOL/L (99-107); CREATININE 1.31 MG/DL (0.40-0.90); GLUCOSE 158 MG/DL (70-104); MAGNESIUM 1.7 MG/DL (1.5-2.4); POTASSIUM 3.6 MMOL/L (3.5-5.1); SODIUM 137 MMOL/L (135-145); TOTAL CARBON DIOXIDE 24.2 MMOL/L (24-32); TOTAL PROTEIN 5.4 G/DL (6.4-8.2); eGFR 40 ML/MIN
--- NOTE | 2020-04-10 06:46 | NUR ---
Problems reprioritized. Patient report given, questions answered & plan of care reviewed with RUDI.
[2020-04-10] MEDS: K and/or MAG REPLACEMENT MC SCH ×2 (08:00→20:00)
[2020-04-10] MEDS: losartan 50mg tablet PO SCH (08:00)
[2020-04-10] MEDS: levoTHYROXINE 25mcg tablet PO SCH (08:34)
[2020-04-10] MEDS: metoprolol tartrate 12.5mg (1/2 tablet) PO SCH ×2 (08:35→20:07)
[2020-04-10] MEDS: phenytoin sod ER 100mg capsule PO SCH (21:14)
[2020-04-11] VITALS: BP 127/71
[2020-04-11] MEDS: HYDROmorphone/NS 1 mg/ml CADD 50 ML IV SCH ×12 (01:00→23:00)
[2020-04-11 01:15] VITALS: BP 122/69
[2020-04-11] MEDS: ondansetron/PF 4mg/2ml inj IV PRN ×2 (04:39→20:42)
[2020-04-11] MEDS: normal saline 1000ml 1,000 ML IV SCH ×2 (05:00→15:08)
--- NOTE | 2020-04-11 05:11 | NUR ---
Pt ambulated 60 feet with fww, O2 & 1 assist.
--- NOTE | 2020-04-11 06:31 | NUR ---
Problems reprioritized. Patient report given, questions answered & plan of care reviewed with Alyssa. Addendum: 04/11/20 at 0632 by Leonidas Araujo RN Amended: Links added.
[2020-04-11 06:48] LABS: BASOPHILS % (AUTO) 0.1 % (0-1); EOSINOPHILS % (AUTO) 0.1 % (0-6); HEMATOCRIT 29.4 % (35.0-45.0); HEMOGLOBIN 10.3 g/dl (12.0-16.0); LYMPHOCYTES # (AUTO) 0.4 X10'3 (1.1-4.8); LYMPHOCYTES % (AUTO) 3.5 % (21-51); MEAN CORPUSCULAR HEMOGLOBIN 34.3 PG (27.0-31.0); MEAN CORPUSCULAR HGB CONC 34.9 g/dL (33.0-36.5); MEAN CORPUSCULAR VOLUME 98.2 FL (78-98); MEAN PLATELET VOLUME 8.6 FL (7.4-10.4); MONOCYTES # (AUTO) 0.7 X10'3 (0-0.9); NEUTROPHILS # (AUTO) 9.3 X10'3 (1.8-7.7); NEUTROPHILS % (AUTO) 89.3 % (42-75); PLATELET COUNT 110 X10'3 (140-440); RED BLOOD COUNT 2.99 X10'6 (4.20-5.60); RED CELL DISTRIBUTION WIDTH 12.8 % (11.5-14.5); WHITE BLOOD COUNT 10.4 X10'3 (4.5-11.0)
[2020-04-11 07:00] VITALS: BP 129/67
--- NOTE | 2020-04-11 07:01 | NUR ---
Patient in room [facility]ANJ[facility] 346. I have received report from KNENY Rodriguez and had the opportunity to ask questions and assume patient care.
[2020-04-11 07:04] LABS: ALANINE AMINOTRANSFERASE 34 U/L (12-78); ALBUMIN 2.3 G/DL (3.4-5.0); ALBUMIN/GLOBULIN RATIO 0.8 (1.1-1.5); ALKALINE PHOSPHATASE 49 IU/L (46-116); ANION GAP 5 (8-16); ASPARTATE AMINO TRANSFERASE 25 U/L (10-37); BILIRUBIN,TOTAL 0.6 MG/DL (0.1-1.0); BLOOD UREA NITROGEN 18 MG/DL (7-18); BUN/CREATININE RATIO 16.4 (6.6-38.0); CHLORIDE 107 MMOL/L (99-107); GLUCOSE 132 MG/DL (70-104); MAGNESIUM 1.8 MG/DL (1.5-2.4); POTASSIUM 3.9 MMOL/L (3.5-5.1); SODIUM 139 MMOL/L (135-145); TOTAL CARBON DIOXIDE 26.8 MMOL/L (24-32); TOTAL PROTEIN 5.2 G/DL (6.4-8.2); eGFR 49 ML/MIN
[2020-04-11] MEDS: levoTHYROXINE 25mcg tablet PO SCH (07:40)
[2020-04-11] MEDS: losartan 50mg tablet PO SCH (07:41)
[2020-04-11] MEDS: metoprolol tartrate 12.5mg (1/2 tablet) PO SCH ×2 (07:41→20:01)
[2020-04-11] MEDS: piperacillin/tazo 3.375gm/50ml 50 ML IV SCH ×2 (07:44→16:24)
[2020-04-11] MEDS: K and/or MAG REPLACEMENT MC SCH ×2 (08:00→20:00)
[2020-04-11] MEDS: proCHLORperazine 10 MG/2 ml inj IV PRN (09:37)
[2020-04-11 11:00] VITALS: BP 111/58
[2020-04-11] MEDS: butalbital/acetaminophen/caffeine (Fioricet) tablet PO PRN ×2 (14:05→20:01)
--- NOTE | 2020-04-11 18:26 | NUR ---
Problems reprioritized. Patient report given, questions answered & plan of care reviewed with KENNY Medeiros.
--- NOTE | 2020-04-11 18:36 | NUR ---
Patient in room [facility]AN[facility] 346. I have received report from KENNY Shah and had the opportunity to ask questions and assume patient care
[2020-04-11 20:00] VITALS: BP 129/69
[2020-04-11] MEDS: lactobacillus rhamnosus 10,000 MMU CELLS/CAPSULE PO SCH (20:00)
[2020-04-11] MEDS: phenytoin sod ER 100mg capsule PO SCH (20:00)
[2020-04-11] MEDS: enoxaparin 40mg/0.4ml syringe SUBCUT SCH (20:02)
--- NOTE | 2020-04-11 20:03 | NUR ---
clamped ng for multimedia producer
[2020-04-12] VITALS: BP 106/62
[2020-04-12] MEDS: HYDROmorphone/NS 1 mg/ml CADD 50 ML IV SCH ×12 (01:00→23:00)
[2020-04-12] MEDS: normal saline 1000ml 1,000 ML IV SCH ×2 (01:40→14:50)
[2020-04-12] MEDS: ondansetron/PF 4mg/2ml inj IV PRN ×2 (05:02→20:51)
[2020-04-12] MEDS: butalbital/acetaminophen/caffeine (Fioricet) tablet PO PRN ×3 (05:05→19:54)
--- NOTE | 2020-04-12 06:14 | NUR ---
Patient in room [facility]AN[facility] 346. I have received report from KENNY Medeiros and had the opportunity to ask questions and assume patient care.
--- NOTE | 2020-04-12 06:16 | NUR ---
Problems reprioritized. Patient report given, questions answered & plan of care reviewed with KENNY Shah.
[2020-04-12 06:23] LABS: BASOPHILS % (AUTO) 0.1 % (0-1); EOSINOPHILS % (AUTO) 0.3 % (0-6); HEMATOCRIT 26.8 % (35.0-45.0); HEMOGLOBIN 9.4 g/dl (12.0-16.0); LYMPHOCYTES # (AUTO) 0.4 X10'3 (1.1-4.8); LYMPHOCYTES % (AUTO) 5.3 % (21-51); MEAN CORPUSCULAR HEMOGLOBIN 34.5 PG (27.0-31.0); MEAN CORPUSCULAR VOLUME 98.5 FL (78-98); MEAN PLATELET VOLUME 8.8 FL (7.4-10.4); MONOCYTES # (AUTO) 0.4 X10'3 (0-0.9); NEUTROPHILS # (AUTO) 7.5 X10'3 (1.8-7.7); NEUTROPHILS % (AUTO) 89.3 % (42-75); PLATELET COUNT 99 X10'3 (140-440); RED BLOOD COUNT 2.72 X10'6 (4.20-5.60); WHITE BLOOD COUNT 8.4 X10'3 (4.5-11.0)
[2020-04-12 06:51] LABS: ALANINE AMINOTRANSFERASE 30 U/L (12-78); ALBUMIN 2.2 G/DL (3.4-5.0); ALBUMIN/GLOBULIN RATIO 0.7 (1.1-1.5); ALKALINE PHOSPHATASE 57 IU/L (46-116); ANION GAP 7 (8-16); ASPARTATE AMINO TRANSFERASE 18 U/L (10-37); BILIRUBIN,TOTAL 0.6 MG/DL (0.1-1.0); BLOOD UREA NITROGEN 17 MG/DL (7-18); BUN/CREATININE RATIO 17.2 (6.6-38.0); CALCIUM 8.1 MG/DL (8.5-10.1); CHLORIDE 107 MMOL/L (99-107); CREATININE 0.99 MG/DL (0.40-0.90); GLUCOSE 82 MG/DL (70-104); MAGNESIUM 1.9 MG/DL (1.5-2.4); POTASSIUM 3.4 MMOL/L (3.5-5.1); SODIUM 142 MMOL/L (135-145); TOTAL CARBON DIOXIDE 28.5 MMOL/L (24-32); TOTAL PROTEIN 5.4 G/DL (6.4-8.2); eGFR 55 ML/MIN
[2020-04-12 07:02] LABS: PLATELET ESTIMATE DECREASED; TOTAL CELLS COUNTED 100
[2020-04-12 07:03] LABS: ELLIPTOCYTES FEW; SCHISTOCYTES FEW
[2020-04-12] MEDS: levoTHYROXINE 25mcg tablet PO SCH (07:18)
[2020-04-12] MEDS: lactobacillus rhamnosus 10,000 MMU CELLS/CAPSULE PO SCH ×2 (07:18→19:54)
[2020-04-12] MEDS: losartan 50mg tablet PO SCH (07:18)
[2020-04-12] MEDS: metoprolol tartrate 12.5mg (1/2 tablet) PO SCH ×2 (07:19→19:54)
[2020-04-12] MEDS: piperacillin/tazo 3.375gm/50ml 50 ML IV SCH ×3 (07:24→16:37)
[2020-04-12 08:00] VITALS: BP 119/63
[2020-04-12] MEDS: K and/or MAG REPLACEMENT MC SCH ×3 (08:00→20:00)
[2020-04-12 11:00] VITALS: BP 123/76
--- NOTE | 2020-04-12 18:12 | NUR ---
Patient in room [facility]AN[facility] 346. I have received report from KENNY Shah and had the opportunity to ask questions and assume patient care.
--- NOTE | 2020-04-12 18:29 | NUR ---
Problems reprioritized. Patient report given, questions answered & plan of care reviewed with Leo Medeiros RN. Pt has not passed gas yet. Ambulated x2 this shift. Report felling stronger and less painful than yesterday.
[2020-04-12 19:00] VITALS: BP 142/73
--- NOTE | 2020-04-12 19:42 | NUR ---
Zechariah BUTCHER for potassium replacement orders and to notify of platelet count 99 with lovenox 40mg BID orders.
[2020-04-12] MEDS ORDERED: magnesium 4gm in 100ml NS 100 ML IV PRN (19:45)
[2020-04-12] MEDS ORDERED: potassium Cl 20 mEq SR tablet PO PRN (19:45)
[2020-04-12] MEDS: enoxaparin 40mg/0.4ml syringe SUBCUT SCH (19:54)
[2020-04-12] MEDS: phenytoin sod ER 100mg capsule PO SCH (20:01)
[2020-04-12] MEDS: potassium Cl 40MEQ/1/2NS 520ml 520 ML IV PRN (20:52)
[2020-04-13] VITALS: BP 124/69
[2020-04-13] MEDS: normal saline 1000ml 1,000 ML IV SCH ×3 (00:56→20:51)
[2020-04-13] MEDS: piperacillin/tazo 3.375gm/50ml 50 ML IV SCH ×3 (00:56→18:58)
[2020-04-13] MEDS: HYDROmorphone/NS 1 mg/ml CADD 50 ML IV SCH ×12 (01:00→23:00)
[2020-04-13] MEDS: ondansetron/PF 4mg/2ml inj IV PRN ×2 (04:29→18:53)
--- NOTE | 2020-04-13 06:21 | NUR ---
Problems reprioritized. Patient report given, questions answered & plan of care reviewed with KENNY Clay.
--- NOTE | 2020-04-13 06:50 | NUR ---
Patient in room [facility]ANJ[facility] 346. I have received report from león COX and had the opportunity to ask questions and assume patient care.
[2020-04-13 08:00] VITALS: BP 114/65
[2020-04-13] MEDS: K and/or MAG REPLACEMENT MC SCH ×4 (08:00→20:00)
[2020-04-13] MEDS: losartan 50mg tablet PO SCH (08:00)
[2020-04-13 08:13] LABS: BASOPHILS % (AUTO) 0.1 % (0-1); EOSINOPHILS % (AUTO) 0.4 % (0-6); HEMATOCRIT 26.8 % (35.0-45.0); HEMOGLOBIN 9.2 g/dl (12.0-16.0); LYMPHOCYTES # (AUTO) 0.3 X10'3 (1.1-4.8); LYMPHOCYTES % (AUTO) 5.4 % (21-51); MEAN CORPUSCULAR HEMOGLOBIN 34.2 PG (27.0-31.0); MEAN CORPUSCULAR HGB CONC 34.4 g/dL (33.0-36.5); MEAN CORPUSCULAR VOLUME 99.4 FL (78-98); MEAN PLATELET VOLUME 8.4 FL (7.4-10.4); MONOCYTES # (AUTO) 0.3 X10'3 (0-0.9); MONOCYTES % (AUTO) 5.4 % (2-12); NEUTROPHILS # (AUTO) 5.6 X10'3 (1.8-7.7); NEUTROPHILS % (AUTO) 88.7 % (42-75); PLATELET COUNT 118 X10'3 (140-440); RED BLOOD COUNT 2.69 X10'6 (4.20-5.60); RED CELL DISTRIBUTION WIDTH 12.8 % (11.5-14.5); WHITE BLOOD COUNT 6.4 X10'3 (4.5-11.0)
[2020-04-13 08:45] LABS: ALANINE AMINOTRANSFERASE 32 U/L (12-78); ALBUMIN 2.4 G/DL (3.4-5.0); ALBUMIN/GLOBULIN RATIO 0.6 (1.1-1.5); ALKALINE PHOSPHATASE 88 IU/L (46-116); ANION GAP 18 (8-16); ASPARTATE AMINO TRANSFERASE 22 U/L (10-37); BLOOD UREA NITROGEN 18 MG/DL (7-18); BUN/CREATININE RATIO 18.9 (6.6-38.0); CHLORIDE 105 MMOL/L (99-107); CREATININE 0.95 MG/DL (0.40-0.90); GLUCOSE 54 MG/DL (70-104); MAGNESIUM 2.1 MG/DL (1.5-2.4); POTASSIUM 3.6 MMOL/L (3.5-5.1); SODIUM 143 MMOL/L (135-145); TOTAL CARBON DIOXIDE 20.1 MMOL/L (24-32); TOTAL PROTEIN 6.3 G/DL (6.4-8.2); eGFR 58 ML/MIN
[2020-04-13] MEDS: levoTHYROXINE 25mcg tablet PO SCH (08:53)
[2020-04-13] MEDS: lactobacillus rhamnosus 10,000 MMU CELLS/CAPSULE PO SCH ×2 (08:53→20:50)
[2020-04-13] MEDS: metoprolol tartrate 12.5mg (1/2 tablet) PO SCH ×2 (08:54→20:50)
[2020-04-13] MEDS: enoxaparin 40mg/0.4ml syringe SUBCUT SCH (08:55)
[2020-04-13] MEDS: butalbital/acetaminophen/caffeine (Fioricet) tablet PO PRN ×2 (08:57→13:44)
--- NOTE | 2020-04-13 10:23 | NUR ---
Dr Hi rounded and instructed pt to ambulate frequently in halls and that she may have popsicles or ice chips sparingly.
[2020-04-13 11:00] VITALS: BP 134/77
[2020-04-13 18:00] VITALS: BP 160/77
--- NOTE | 2020-04-13 18:45 | NUR ---
Patient in room [facility]ANJ[facility] 345. I have received report from KENNY Clay and had the opportunity to ask questions and assume patient care. Addendum: 04/13/20 at 1846 by Hilton Handy RN room 346B
[2020-04-13] MEDS: phenytoin sod ER 100mg capsule PO SCH (20:45)
[2020-04-14] VITALS: BP 128/66
[2020-04-14] MEDS: piperacillin/tazo 3.375gm/50ml 50 ML IV SCH ×4 (00:26→23:14)
[2020-04-14] MEDS: HYDROmorphone/NS 1 mg/ml CADD 50 ML IV SCH ×8 (01:00→15:00)
[2020-04-14] MEDS: ondansetron/PF 4mg/2ml inj IV PRN ×2 (01:20→11:40)
[2020-04-14] MEDS: butalbital/acetaminophen/caffeine (Fioricet) tablet PO PRN ×2 (05:09→19:06)
[2020-04-14] MEDS: normal saline 1000ml 1,000 ML IV SCH ×2 (05:54→15:07)
--- NOTE | 2020-04-14 06:40 | NUR ---
Problems reprioritized. Patient report given, questions answered & plan of care reviewed with KENNY Payne.
[2020-04-14 06:45] LABS: BASOPHILS % (AUTO) 0.2 % (0-1); EOSINOPHILS # (AUTO) 0.1 X10'3 (0-0.9); EOSINOPHILS % (AUTO) 1.2 % (0-6); HEMOGLOBIN 9.3 g/dl (12.0-16.0); LYMPHOCYTES # (AUTO) 0.4 X10'3 (1.1-4.8); LYMPHOCYTES % (AUTO) 8.5 % (21-51); MEAN CORPUSCULAR HEMOGLOBIN 33.9 PG (27.0-31.0); MEAN CORPUSCULAR HGB CONC 34.6 g/dL (33.0-36.5); MEAN PLATELET VOLUME 7.9 FL (7.4-10.4); MONOCYTES # (AUTO) 0.5 X10'3 (0-0.9); MONOCYTES % (AUTO) 10.1 % (2-12); NEUTROPHILS # (AUTO) 3.7 X10'3 (1.8-7.7); PLATELET COUNT 114 X10'3 (140-440); RED BLOOD COUNT 2.75 X10'6 (4.20-5.60); RED CELL DISTRIBUTION WIDTH 12.6 % (11.5-14.5); WHITE BLOOD COUNT 4.6 X10'3 (4.5-11.0)
[2020-04-14 06:55] LABS: ALANINE AMINOTRANSFERASE 27 U/L (12-78); ALBUMIN 2.3 G/DL (3.4-5.0); ALBUMIN/GLOBULIN RATIO 0.6 (1.1-1.5); ALKALINE PHOSPHATASE 140 IU/L (46-116); ANION GAP 14 (8-16); ASPARTATE AMINO TRANSFERASE 17 U/L (10-37); BILIRUBIN,TOTAL 1.1 MG/DL (0.1-1.0); BLOOD UREA NITROGEN 11 MG/DL (7-18); BUN/CREATININE RATIO 10.7 (6.6-38.0); CALCIUM 8.3 MG/DL (8.5-10.1); CHLORIDE 107 MMOL/L (99-107); CREATININE 1.03 MG/DL (0.40-0.90); GLUCOSE 83 MG/DL (70-104); MAGNESIUM 1.8 MG/DL (1.5-2.4); POTASSIUM 3.1 MMOL/L (3.5-5.1); SODIUM 146 MMOL/L (135-145); TOTAL CARBON DIOXIDE 25.1 MMOL/L (24-32); eGFR 52 ML/MIN
[2020-04-14 07:00] VITALS: BP 131/66
[2020-04-14] MEDS: K and/or MAG REPLACEMENT MC SCH ×3 (08:00→20:00)
[2020-04-14] MEDS: lactobacillus rhamnosus 10,000 MMU CELLS/CAPSULE PO SCH ×2 (08:34→19:05)
[2020-04-14] MEDS: metoprolol tartrate 12.5mg (1/2 tablet) PO SCH ×2 (08:34→19:05)
[2020-04-14] MEDS: enoxaparin 40mg/0.4ml syringe SUBCUT SCH (08:35)
[2020-04-14] MEDS: losartan 50mg tablet PO SCH (08:35)
[2020-04-14] MEDS: levoTHYROXINE 25mcg tablet PO SCH (08:36)
[2020-04-14 11:00] VITALS: BP 168/72
--- NOTE | 2020-04-14 13:44 | NUR ---
Initial: Pt had laparotomy, lysis of adhesion and bowel resection 04/09 due to bowel obstruction, NORI secondary to dehydration 04/13, pt has post op ileus and not passed gas yet and still waiting for return of bowel function 04/14 as per physician's notes. Pt still experiencing abdominal aches, soft generalized tenderness, and distended, bowel sounds present. Pt on BOTTLER HELPER pump, may be also causing delay of bowel function. Pt on nasal gastric suction, gastric drainage 1750ml 04/14. Pt has been NPO since 04/10, has been ambulating and only allowed to have ice chips, not meeting nutritional needs. Pt last BM 04/09, recommend bowel care as needed. Pt may benefit from opiate agonist antagonist, discussed with bedside nurse, to discuss with surgeon. Continue sending ice chips/popsicles per surgeon's order. Recommend: 1. Advancement of diet as medically indicated- low fiber diet 2. Bowel care as needed 3. May benefit form opiate aganost antagonist in view of post op ileus 4. Weight per rx
--- NOTE | 2020-04-14 13:47 | NUR ---
Initial: Pt had laparotomy, lysis of adhesion and bowel resection 04/09 due to bowel obstruction, NORI secondary to dehydration 04/13, pt has post op ileus and not passed gas yet and still waiting for return of bowel function 04/14 as per physician's notes. Pt still experiencing abdominal aches, soft generalized tenderness, and distended, bowel sounds present. Pt on SR. MANAGER [employer]POR[employer]ICATION[employer] pump, may be also causing delay of bowel function. Pt on nasal gastric suction, gastric drainage 1750ml 04/14. Pt has been NPO since 04/10, has been ambulating and only allowed to have ice chips, not meeting nutritional needs. Pt last BM 04/09, recommend bowel care as needed. Pt may benefit from opiate agonist antagonist, discussed with bedside nurse, to discuss with surgeon. Continue sending ice chips/popsicles per surgeon's order. Recommend: 1. Advancement of diet as medically indicated- low fiber diet 2. Bowel care as needed 3. May benefit form opiate agonist antagonist in view of post op ileus 4. Weight per rx Addendum: 04/14/20 at 1348 by Talha Blanco ASSOCIATE SALES RD Amended: Links added. Addendum: 04/14/20 at [address] RD agree with international account executive note
[2020-04-14] MEDS: proCHLORperazine 10 MG/2 ml inj IV PRN ×2 (15:06→22:01)
--- NOTE | 2020-04-14 17:34 | NUR ---
NG DC, PT TOLERATED WELL
[2020-04-14 18:00] VITALS: BP 141/79
--- NOTE | 2020-04-14 18:20 | NUR ---
Patient in room [facility]ANJ[facility] 346. I have received report from Kerry COX and had the opportunity to ask questions and assume patient care.
[2020-04-14] MEDS: HYDROcodone/acetaminophen 10/325mg tab PO PRN ×2 (19:06→23:16)
[2020-04-14] MEDS: potassium Cl 20 mEq SR tablet PO PRN (19:06)
[2020-04-14] MEDS: phenytoin sod ER 100mg capsule PO SCH (21:58)
[2020-04-15] VITALS: BP 138/83
[2020-04-15] MEDS: ondansetron/PF 4mg/2ml inj IV PRN ×2 (00:31→17:17)
[2020-04-15] MEDS: HYDROcodone/acetaminophen 10/325mg tab PO PRN ×5 (03:44→21:35)
[2020-04-15] MEDS: normal saline 1000ml 1,000 ML IV SCH ×2 (05:10→12:41)
[2020-04-15 06:15] LABS: MAGNESIUM 1.3 MG/DL (1.5-2.4)
--- NOTE | 2020-04-15 06:35 | NUR ---
Patient in room [facility]ANJ[facility] 346. I have received report from MOLINA COX and had the opportunity to ask questions and assume patient care.
--- NOTE | 2020-04-15 06:35 | NUR ---
Problems reprioritized. Patient report given, questions answered & plan of care reviewed with Kerry COX.
[2020-04-15 07:00] VITALS: BP 140/76
[2020-04-15 08:00] LABS: POTASSIUM 2.7 MMOL/L (3.5-5.1)
--- NOTE | 2020-04-15 08:02 | NUR ---
PAGED DR MATTHEWS RE: PAGER ID: [phone] MESSAGE: THUY GROSS. CRITICAL K 2.7. WILL REPLACE PER PROTOCOL . SURGICAL FREDDIE [id number]
[2020-04-15] MEDS: proCHLORperazine 10 MG/2 ml inj IV PRN ×2 (08:10→21:35)
[2020-04-15] MEDS: metoprolol tartrate 12.5mg (1/2 tablet) PO SCH ×2 (08:13→19:45)
[2020-04-15] MEDS: lactobacillus rhamnosus 10,000 MMU CELLS/CAPSULE PO SCH ×2 (08:14→19:45)
[2020-04-15] MEDS: losartan 50mg tablet PO SCH (08:14)
[2020-04-15] MEDS: magnesium Cl slow-release 64mg tablet PO PRN ×2 (08:14→19:46)
[2020-04-15] MEDS: enoxaparin 40mg/0.4ml syringe SUBCUT SCH (08:14)
[2020-04-15] MEDS: levoTHYROXINE 25mcg tablet PO SCH (08:18)
[2020-04-15] MEDS: butalbital/acetaminophen/caffeine (Fioricet) tablet PO PRN ×2 (08:18→19:45)
[2020-04-15] MEDS: K and/or MAG REPLACEMENT MC SCH ×2 (08:22→20:00)
[2020-04-15] MEDS: potassium Cl 40MEQ/1/2NS 520ml 520 ML IV PRN (08:27)
[2020-04-15 11:00] VITALS: BP 142/84
[2020-04-15] MEDS: chlorhexidine gluconate 15ml Cup****oral rinse MM SCH (12:04)
[2020-04-15] MEDS: morphine 2 MG/ML inj. syringe IV PRN ×2 (12:38→17:12)
[2020-04-15] MEDS: potassium Cl 20 mEq SR tablet PO PRN ×2 (14:10→19:43)
--- NOTE | 2020-04-15 17:00 | NUR ---
NOTIFIED DR LOVE RE PT DISTENDED ABD AND BULGE OUT OF L SIDE. DR LOVE EXAMINED PT AND ORDERED CT FOR TOMORROW. NOTIFIED DR MATTHEWS RE PT PAIN CONTROL NOT ADEQUATE, GOT ORDER FOR INCREASED DOSE OF PAIN MEDS. WILL CONT TO MONITOR AND ADDRESS PAIN CONTROL NEEDS.
[2020-04-15] MEDS ORDERED: morphine 2 MG/ML inj. syringe IV PRN ×2 (17:25)
[2020-04-15 18:00] VITALS: BP 141/78
--- NOTE | 2020-04-15 18:30 | NUR ---
Patient in room [facility]ANJ[facility] 346. I have received report from Kerry COX and had the opportunity to ask questions and assume patient care.
[2020-04-15] MEDS ORDERED: diatr meglu/diatrizoate 30ml oral sol.-(3 dose) bottle PO SCH (21:00)
[2020-04-15] MEDS: diatr meglu/diatrizoate 30ml oral sol.-(3 dose) bottle PO SCH (21:34)
[2020-04-15] MEDS: phenytoin sod ER 100mg capsule PO SCH (21:34)
[2020-04-16 00:03] VITALS: BP 122/69
[2020-04-16] MEDS: ondansetron/PF 4mg/2ml inj IV PRN ×3 (00:28→17:02)
[2020-04-16] MEDS: morphine 2 MG/ML inj. syringe IV PRN ×5 (00:29→23:23)
--- NOTE | 2020-04-16 06:00 | NUR ---
Patient in room [facility]ANJ[facility] 346. I have received report from KENNY Roberts and had the opportunity to ask questions and assume patient care.
--- NOTE | 2020-04-16 06:23 | NUR ---
Problems reprioritized. Patient report given, questions answered & plan of care reviewed with Cristal COX.
[2020-04-16] MEDS: diatr meglu/diatrizoate 30ml oral sol.-(3 dose) bottle PO SCH ×2 (07:08→09:50)
[2020-04-16] MEDS: normal saline 1000ml 1,000 ML IV SCH (07:11)
[2020-04-16 07:16] LABS: MAGNESIUM 1.4 MG/DL (1.5-2.4); POTASSIUM 3.1 MMOL/L (3.5-5.1)
[2020-04-16 08:00] VITALS: BP 130/87
[2020-04-16] MEDS: K and/or MAG REPLACEMENT MC SCH ×2 (08:00→20:13)
[2020-04-16] MEDS: chlorhexidine gluconate 15ml Cup****oral rinse MM SCH (09:22)
[2020-04-16] MEDS: losartan 50mg tablet PO SCH (09:23)
[2020-04-16] MEDS: lactobacillus rhamnosus 10,000 MMU CELLS/CAPSULE PO SCH ×2 (09:23→20:14)
[2020-04-16] MEDS: levoTHYROXINE 25mcg tablet PO SCH (09:23)
[2020-04-16] MEDS: metoprolol tartrate 12.5mg (1/2 tablet) PO SCH ×2 (09:23→20:15)
[2020-04-16] MEDS: enoxaparin 40mg/0.4ml syringe SUBCUT SCH (09:24)
[2020-04-16 11:00] VITALS: BP 134/78
[2020-04-16] MEDS: HYDROcodone/acetaminophen 10/325mg tab PO PRN (11:41)
[2020-04-16] MEDS: butalbital/acetaminophen/caffeine (Fioricet) tablet PO PRN (11:41)
[2020-04-16] MEDS ORDERED: potassium Cl 20 mEq SR tablet PO ONE (12:45)
[2020-04-16] MEDS ORDERED: loperamide 2mg capsule PO PRN (12:45)
--- NOTE | 2020-04-16 18:20 | NUR ---
Problems reprioritized. Patient report given, questions answered & plan of care reviewed with KENNY Otoole.
[2020-04-16 18:40] VITALS: BP 135/83
[2020-04-16 19:30] VITALS: BP 135/83
[2020-04-16] MEDS: phenytoin sod ER 100mg capsule PO SCH (20:14)
[2020-04-16] MEDS: magnesium oxide 400mg tablet PO SCH (20:15)
[2020-04-17 00:13] VITALS: BP 127/81
[2020-04-17] MEDS: proCHLORperazine 10 MG/2 ml inj IV PRN (01:46)
[2020-04-17] MEDS: normal saline 1000ml 1,000 ML IV SCH (01:51)
[2020-04-17] MEDS: morphine 2 MG/ML inj. syringe IV PRN (04:17)
[2020-04-17] MEDS: ondansetron/PF 4mg/2ml inj IV PRN (05:39)
--- NOTE | 2020-04-17 06:42 | NUR ---
Problems reprioritized. Patient report given, questions answered & plan of care reviewed with RUDI. Addendum: 04/17/20 at 0642 by Leonidas Araujo RN Amended: Links added.
--- NOTE | 2020-04-17 06:45 | NUR ---
Patient in room [facility]ANJIT 346. I have received report from Michael COX and had the opportunity to ask questions and assume patient care.
[2020-04-17 07:00] VITALS: BP 137/79
[2020-04-17] MEDS: magnesium oxide 400mg tablet PO SCH (07:36)
[2020-04-17] MEDS: lactobacillus rhamnosus 10,000 MMU CELLS/CAPSULE PO SCH (07:36)
[2020-04-17] MEDS: levoTHYROXINE 25mcg tablet PO SCH (07:36)
[2020-04-17] MEDS: chlorhexidine gluconate 15ml Cup****oral rinse MM SCH (07:37)
[2020-04-17] MEDS: losartan 50mg tablet PO SCH (07:37)
[2020-04-17] MEDS: metoprolol tartrate 12.5mg (1/2 tablet) PO SCH (07:38)
[2020-04-17] MEDS: butalbital/acetaminophen/caffeine (Fioricet) tablet PO PRN (07:43)
[2020-04-17] MEDS: K and/or MAG REPLACEMENT MC SCH (07:44)
[2020-04-17] MEDS: enoxaparin 40mg/0.4ml syringe SUBCUT SCH (08:00)
[2020-04-17] MEDS ORDERED: HYDR-4353 PO (08:57)
[2020-04-17] MEDS ORDERED: ONDA-103 PO (08:57)
[2020-04-17] MEDS: HYDROcodone/acetaminophen 10/325mg tab PO PRN (09:25)
[2020-04-17 11:00] VITALS: BP 126/83
--- NOTE | 2020-04-17 11:03 | NUR ---
Marlo from [facility] Called to clarify that Dr Tellez is aware patient already has prescription for Fioracet and Tramadol that patient has been filling with them and they would like to clarify he would still like to prescribe Ardenvoir. Per Dr Tellez he would still like to prescribe the Ardenvoir due to Tramadol won't help her at this time. Called Marlo at [facility] back and he is aware.
--- NOTE | 2020-04-17 12:10 | NUR ---
Pt DC to home with daughter. Pt is A & O x4 and in no apparent distress. pt verbalizes understanding of ALL DC orders and is able to teach back the importance of following up with PCP and wound care. pt was given some supplies in case they were needed. Wound dressing was changed and it is D & I. Pt's IV cath was removed intact. Pt dressed herself, packed her belongings and was given some supplies. pt's daughter came to pick her up. Pt wheeled to the front were her daughter picked her up and took her home.
--- NOTE | 2020-04-18 15:56 | NUR ---
CASE MANAGEMENT DISCHARGE FOLLOW UP: Spoke with pt's daughter, Macarena, via telephone. Pt is currently resting; previously attempted to phone her at 1552 and she seemed to have difficulty understanding this nurse over the phone. Per Macarena, pt still having a significant amount of pain despite Norco10 Q6H, she states pt has been ambulating and passing gas with 6 episodes incontinence of stool, reportedly pt is worn out from the multiple accidents. Advised that as pt's pain level is significant and not improved with ambulation, as well as multiple accidents, to please contact Dr Hi's office and request assistance. Macarena verbalizes understanding of s/sx requiring further evaluation/emergent assistance. Denies fever/sweating/bleeding. Macarena verbalizes understanding of the importance in keeping follow-up appointment with Dr Hi at [facility] on 04/20/20. Per Macarena, home health nurse visited them today and listened to pt's bowels, sound good. Macarena states no further questions/concerns at this time and that she will contact Dr Hi's office.
== END 2020-04-17 12:19 | disposition home health service (06) | DRG 329 ==
LOC: ER 16:53 → ED HOLD 19:08 → SUR 3N 23:40
PROVIDERS: ADMIT Family Medicine; ATTEND Internal Medicine
PROC: 0DN80ZZ Release Small Intestine, Open Approach (ICD-10-PCS; 2020-04-09)
PROC: 0DB80ZZ Excision of Small Intestine, Open Approach (ICD-10-PCS; principal; 2020-04-09 19:36)
DX: K46.0 Unspecified abdominal hernia with obstruction, without gangrene (principal); E43 Unspecified severe protein-calorie malnutrition; K55.9 Vascular disorder of intestine, unspecified; K56.51 Intestinal adhesions [bands], with partial obstruction; N17.9 Acute kidney failure, unspecified; K56.7 Ileus, unspecified; D62 Acute posthemorrhagic anemia; K91.89 Other postprocedural complications and disorders of digestive system; Z68.1 Body mass index [BMI] 19.9 or less, adult; I10 Essential (primary) hypertension; E06.3 Autoimmune thyroiditis; E78.5 Hyperlipidemia, unspecified; F17.210 Nicotine dependence, cigarettes, uncomplicated; J44.9 Chronic obstructive pulmonary disease, unspecified; Z20.822 Contact with and (suspected) exposure to COVID-19; E87.6 Hypokalemia; M19.90 Unspecified osteoarthritis, unspecified site; G89.29 Other chronic pain; E03.9 Hypothyroidism, unspecified; I25.2 Old myocardial infarction; Z79.899 Other long term (current) drug therapy; Z90.710 Acquired absence of both cervix and uterus; Z88.5 Allergy status to narcotic agent; Z88.8 Allergy status to other drugs, medicaments and biological substances
CPT/HCPCS: 36415; 71045; 74176; 80053; 82948; 83605; 83690; 83735; 84132; 85007; 85025; 87081; 87635; 88307; 93005; 96374; 97116; 97161; 97530; 99285; A4618; A7000; C1758; C9290; G0378; J0131; J0694; J0780; J1100; J1170; J1650; J2001; J2250; J2270; J2405; J2543; J2704; J2710; J3010; J3480; J3490; J7030; J7120; Q9963

== ENCOUNTER 2021-10-03 06:13 | Observation (INO) | payer MEDICARE, MEDICAID ==
[2021-09-26 16:19] LABS: CLARITY,URINE CLEAR (Clear); COLOR,URINE YELLOW (Yellow); GLUCOSE, URINE NEGATIVE (Neg); KETONES,URINE TRACE mg/dl (Neg); LEUKOCYTE ESTERASE ,URINE NEGATIVE (Neg); NITRITES, URINE NEGATIVE (Neg); OCCULT BLOOD,URINE NEGATIVE (Neg); PH,URINE 5.5 (4.8-8.0); PROTEIN,URINE NEGATIVE (Neg); UROBILINOGEN,URINE 0.2 E.U/dL (0.2-1.0)
[2021-09-26 16:20] LABS: UA COLLECTION TYPE CLN CATCH MIDSTREAM
[2021-09-26 16:20] LABS: BASOPHILS % (AUTO) 0.5 % (0-1); EOSINOPHILS # (AUTO) 0.1 X10'3 (0-0.9); EOSINOPHILS % (AUTO) 1.2 % (0-6); LYMPHOCYTES # (AUTO) 2.1 X10'3 (1.1-4.8); LYMPHOCYTES % (AUTO) 32.2 % (21-51); MEAN CORPUSCULAR HEMOGLOBIN 31.9 PG (27.0-31.0); MEAN CORPUSCULAR HGB CONC 33.2 g/dL (33.0-36.5); MEAN CORPUSCULAR VOLUME 96.3 FL (78-98); MEAN PLATELET VOLUME 8.7 FL (7.4-10.4); MONOCYTES # (AUTO) 0.8 X10'3 (0-0.9); MONOCYTES % (AUTO) 12.9 % (2-12); NEUTROPHILS # (AUTO) 3.4 X10'3 (1.8-7.7); NEUTROPHILS % (AUTO) 53.2 % (42-75); PRE OP HEMATOCRIT 38.5 % (35.0-45.0); PRE OP HEMOGLOBIN 12.8 g/dL (12.0-16.0); PRE OP PLATELET COUNT 144 X10'3 (140-440); RED CELL DISTRIBUTION WIDTH 13.4 % (11.5-14.5)
[2021-09-26 16:51] LABS: ALBUMIN/GLOBULIN RATIO 1.2 (1.1-1.5); ALKALINE PHOSPHATASE 60 IU/L (46-116); BLOOD UREA NITROGEN 30 MG/DL (7-18); BUN/CREATININE RATIO 19.9 (6.6-38.0); CALCIUM 8.5 MG/DL (8.5-10.1); CHLORIDE 104 MMOL/L (99-107); CREATININE 1.51 MG/DL (0.40-0.90); PRE OP ALT 21 U/L (30-65); PRE OP ANION GAP 11 (8-16); PRE OP AST 13 U/L (10-37); PRE OP BILIRUB, TOTAL 0.3 MG/DL (0.0-1.0); PRE OP GLUCOSE 75 MG/DL (70-104); PRE OP SODIUM 140 MMOL/L (135-145); TOTAL CARBON DIOXIDE 25.2 MMOL/L (24-32); TOTAL PROTEIN 7.4 G/DL (6.4-8.2); eGFR 34 ML/MIN
[2021-10-03] VITALS (17 sets, daily range): BP systolic 106–167; BP diastolic 45–88
[~2021-10-03] VITALS: Ht 170.2 cm; Wt 73.3 kg
[~2021-10-03 06:13] MED LIST changes: +ANTIANXIETY PO; -BACL10TA2 PO; +BUTA1TAB54 PO; +DOCU-148 PO; +DOCUMENT DATE & TIME OF BETA-BLOCKER PO ONE; -ERGO500054 PO; -LEVO50TA8 PO; -MAGN400T28 PO; +METH-797 PO; -OMEP-50 PO; -PRED10TA PO; +WHEA98PO PO; -[UNRECOGNIZED DRUG - CODE] PO; +clindamycin-Cleocin 900mg/D5W 50 ML IV ONE; +famotidine 20mg tablet PO ONE
[2021-10-03] MEDS: ringers solution, lacted 1,000 ML IV SCH ×2 (06:56→13:30)
[2021-10-03] MEDS ORDERED: BUPIVAcaine/PF 2.5mg/ml (0.25%) 10ml vial ONE ×2 (06:59→08:53)
[2021-10-03] MEDS ORDERED: bacitracin 15gm ointment TP ONE (06:59)
[2021-10-03] MEDS ORDERED: proCHLORperazine 10 MG/2 ml inj IV PRN (08:20)
[2021-10-03] MEDS ORDERED: fentaNYL/PF 50MCG/1 ML 2ML syringe IV PRN (08:20)
[2021-10-03] MEDS ORDERED: HYDROmorphone/PF 0.2 MG/ML SYRINGE IV PRN ×2 (08:20)
[2021-10-03] MEDS ORDERED: ondansetron/PF 4mg/2ml inj IV PRN (08:20)
[2021-10-03] MEDS ORDERED: hydrALAZINE 20mg/ml inj. IV PRN (08:20)
[2021-10-03] MEDS ORDERED: ringers solution, lacted 1,000 ML IV SCH (08:20)
[2021-10-03] MEDS ORDERED: acetaminophen 1,000mg/100ml IV 100 ML IV PRN (08:20)
[2021-10-03] MEDS ORDERED: labetalol 20mg/4ml (5mg/ml) syringe IV PRN (08:20)
[2021-10-03] MEDS ORDERED: meperidine/PF 25mg/ml syringe IV PRN (08:20)
[2021-10-03] MEDS ORDERED: sevoflurane 250ml liquid IH ONE (08:23)
[2021-10-03] MEDS ORDERED: rocuronium 10mg/ml inj IV ONE ×2 (08:23→08:42)
[2021-10-03] MEDS ORDERED: neostigmine methylsulfate 1 MG/ML 10ml vial ONE (08:23)
[2021-10-03] MEDS ORDERED: glycopyrrolate 0.2mg/ml inj ONE (08:23)
[2021-10-03] MEDS ORDERED: midazolam 1 mg/ML 2ml injection ONE (08:28)
[2021-10-03] MEDS ORDERED: fentaNYL /PF 50mcg/ml 5ml ampule ONE (08:28)
[2021-10-03] MEDS ORDERED: propofol inj 20 ML IV ONE ×2 (08:42→09:49)
[2021-10-03] MEDS ORDERED: LIDOcaine 2% (20mg/ml) 5ml vial ONE (08:42)
[2021-10-03] MEDS ORDERED: BUPIVACAINE liposomal/PF 13.3 MG/ML vial IM ONE (08:53)
[2021-10-03] MEDS ORDERED: ondansetron/PF 4mg/2ml inj ONE (09:47)
[2021-10-03] MEDS ORDERED: hydrocortisone sod succ/PF 100mg/2ml inj. ONE (09:49)
[2021-10-03] MEDS ORDERED: dexamethasone sod phosphate 4mg/ml inj. ONE (09:49)
--- NOTE | 2021-10-03 11:15 | NUR ---
Received from OR via , accompanied by Anesthesiologist and report given by Anesthesiolgist. PATIENT WAKING UP, DENIES PAIN, V/S WNL, SCD ON 20G PIV TO RUE, NEUROVASCULAR CHECKS INTACT.ISLAND DRESSING TO ABDOMEN CDI WITH NO S/S OF COMPLICATIONS.
[2021-10-03] MEDS: fentaNYL/PF 50MCG/1 ML 2ML syringe IV PRN ×2 (11:25→11:41)
[2021-10-03] MEDS ORDERED: naloxone 0.4 mg/ml inj IV PRN ×2 (11:40→13:10)
[2021-10-03] MEDS ORDERED: traMADol 50MG tablet PO PRN ×2 (11:40→13:15)
--- NOTE | 2021-10-03 11:47 | NUR ---
RECEIVED REPORT FROM KENNY CARLOS. AWAITING PATIENT ARRIVAL.
--- NOTE | 2021-10-03 12:15 | NUR ---
PATIENT A&OX4, C/O PAIN AT TIMES SEE EMAR FOR MEDS GIVEN, V/S WNL, SCD ON 20G PIV TO RUE, NEUROVASCULAR CHECKS INTACT. LAP SITES TO ABDOMEN CDI WITH NO S/S OF COMPLICATIONS. PATIENT TAKEN TO 4017 WITH ALL BELONGINGS AND HOOKED UP TO MONITORS IN ROOM AND REPORT GIVEN TO RN WHO HAS TAKEN OVER PATIENT CARE,.
[2021-10-03] MEDS ORDERED: ergocalciferol (vit D2) capsule 50,000 UNITS (1,250mcg) CAPSULE PO SCH (13:15)
[2021-10-03] MEDS ORDERED: cyanocobalamin 1,000 mcg/ml inj IM SCH (13:15)
[2021-10-03] MEDS: normal saline 1000ml 1,000 ML IV SCH ×2 (13:37→23:04)
[2021-10-03] MEDS: HYDROmorph/NS 0.2 mg/ml PCA 100 ML IV SCH ×5 (14:27→23:00)
[2021-10-03] MEDS: clindamycin 300mg/D5W 50mL 50 ML IV SCH ×2 (14:30→20:29)
[2021-10-03] MEDS ORDERED: HYDROmorph/NS 0.2 mg/ml PCA 100 ML IV SCH (15:00)
[2021-10-03] MEDS ORDERED: hydrocortisone sod succ/PF 250mg/2ml inj. IV SCH (17:00)
[2021-10-03] MEDS: hydrocortisone sod succ/PF 100mg/2ml inj. IV SCH (17:02)
[2021-10-03] MEDS: ondansetron 4mg rapidly disintigrating tab PO PRN (17:02)
--- NOTE | 2021-10-03 18:18 | NUR ---
Problems reprioritized. Patient report given, questions answered & plan of care reviewed with KENNY Leon.
[2021-10-03] MEDS ORDERED: [UNRECOGNIZED DRUG - OTHER] PO SCH (20:00)
[2021-10-03] MEDS ORDERED: WHEAT DEXTRIN PO SCH (20:00)
[2021-10-03] MEDS ORDERED: ANTIANXIETY PO SCH (20:00)
[2021-10-03] MEDS: metoclopramide 10mg tablet PO PRN (20:30)
[2021-10-03] MEDS: metoprolol tartrate 25mg tablet PO SCH (20:30)
[2021-10-03] MEDS: phenytoin sod ER 100mg capsule PO SCH (20:31)
[2021-10-03] MEDS: METHOCARBAMOL PO SCH (20:37)
[2021-10-03] MEDS: butalbital/acetaminophen/caffeine (Fioricet) tablet PO PRN (21:09)
[2021-10-04] MEDS: HYDROmorph/NS 0.2 mg/ml PCA 100 ML IV SCH ×3 (01:00→05:00)
[2021-10-04] MEDS: hydrocortisone sod succ/PF 100mg/2ml inj. IV SCH ×2 (01:14→09:13)
[2021-10-04] MEDS: clindamycin 300mg/D5W 50mL 50 ML IV SCH ×4 (01:25→20:30)
[2021-10-04 02:00] VITALS: BP 134/67
[2021-10-04] MEDS: metoclopramide 10mg tablet PO PRN ×3 (02:43→22:29)
[2021-10-04 06:00] VITALS: BP 139/73
--- NOTE | 2021-10-04 06:21 | NUR ---
Problems reprioritized. Patient report given, questions answered & plan of care reviewed with KENNY Rodriguez.
[2021-10-04 06:31] LABS: BASOPHILS % (AUTO) 0.1 % (0-1); EOSINOPHILS % (AUTO) 0 % (0-6); HEMATOCRIT 34.7 % (35.0-45.0); HEMOGLOBIN 11.6 g/dl (12.0-16.0); LYMPHOCYTES # (AUTO) 0.6 X10'3 (1.1-4.8); LYMPHOCYTES % (AUTO) 4.4 % (21-51); MEAN CORPUSCULAR HEMOGLOBIN 32.5 PG (27.0-31.0); MEAN CORPUSCULAR HGB CONC 33.4 g/dL (33.0-36.5); MEAN CORPUSCULAR VOLUME 97.3 FL (78-98); MONOCYTES # (AUTO) 0.8 X10'3 (0-0.9); MONOCYTES % (AUTO) 5.3 % (2-12); NEUTROPHILS # (AUTO) 13.3 X10'3 (1.8-7.7); NEUTROPHILS % (AUTO) 90.2 % (42-75); PLATELET COUNT 113 X10'3 (140-440); RED BLOOD COUNT 3.57 X10'6 (4.20-5.60); RED CELL DISTRIBUTION WIDTH 13.2 % (11.5-14.5); WHITE BLOOD COUNT 14.7 X10'3 (4.5-11.0)
[2021-10-04] MEDS: ondansetron 4mg rapidly disintigrating tab PO PRN ×2 (07:10→20:34)
[2021-10-04 07:51] LABS: ALBUMIN 3.3 G/DL (3.4-5.0); ANION GAP 8 (8-16); BLOOD UREA NITROGEN 12 MG/DL (7-18); CALCIUM 8.5 MG/DL (8.5-10.1); CHLORIDE 102 MMOL/L (99-107); GLUCOSE 168 MG/DL (70-104); POTASSIUM 4.1 MMOL/L (3.5-5.1); SODIUM 134 MMOL/L (135-145); TOTAL CARBON DIOXIDE 23.7 MMOL/L (24-32); eGFR 54 ML/MIN
[2021-10-04] MEDS ORDERED: ergocalciferol (vit D2) capsule 50,000 UNITS (1,250mcg) CAPSULE PO SCH (08:00)
[2021-10-04] MEDS: butalbital/acetaminophen/caffeine (Fioricet) tablet PO PRN ×2 (09:12→15:22)
[2021-10-04] MEDS: losartan 50mg tablet PO SCH (09:13)
[2021-10-04] MEDS: metoprolol tartrate 25mg tablet PO SCH ×2 (09:14→20:27)
[2021-10-04] MEDS: docusate sod 100mg capsule PO SCH (09:14)
[2021-10-04] MEDS ORDERED: PCA WASTE DOCUMENTATION MC ONE (09:45)
[2021-10-04] MEDS: oxyCODONE/APAP 10/325mg tablet PO PRN ×4 (09:53→22:28)
[2021-10-04] MEDS: METHOCARBAMOL PO SCH ×3 (09:54→20:25)
[2021-10-04 10:00] VITALS: BP 118/70
[2021-10-04] MEDS: normal saline 1000ml 1,000 ML IV SCH ×2 (11:34→18:35)
[2021-10-04] MEDS ORDERED: acetaminophen 325mg tablet PO PRN (17:10)
[2021-10-04 18:00] VITALS: BP 148/69
[2021-10-04] MEDS: phenytoin sod ER 100mg capsule PO SCH (21:46)
[2021-10-04] MEDS ORDERED: phenytoin sod ER 100mg capsule PO SCH (21:50)
--- NOTE | 2021-10-04 21:50 | NUR ---
tried to call MD at [phone] - unable to leave a message (mailbox is full). called paging service - they paged him with no response. I just tried again, Dr Gomez stated to make dosage of Keppra same as patient says.
[2021-10-04 22:00] VITALS: BP 135/80
[2021-10-05] MEDS: clindamycin 300mg/D5W 50mL 50 ML IV SCH ×3 (02:06→09:28)
[2021-10-05] MEDS: oxyCODONE/APAP 10/325mg tablet PO PRN ×4 (02:11→15:08)
[2021-10-05] MEDS: butalbital/acetaminophen/caffeine (Fioricet) tablet PO PRN (02:11)
[2021-10-05] MEDS: normal saline 1000ml 1,000 ML IV SCH (03:40)
[2021-10-05] MEDS: ondansetron 4mg rapidly disintigrating tab PO PRN ×2 (05:32→15:08)
[2021-10-05 06:00] VITALS: BP 124/71
[2021-10-05 07:23] LABS: ALBUMIN 2.9 G/DL (3.4-5.0); ANION GAP 9 (8-16); BLOOD UREA NITROGEN 7 MG/DL (7-18); CALCIUM 8.6 MG/DL (8.5-10.1); CHLORIDE 106 MMOL/L (99-107); CREATININE 0.87 MG/DL (0.40-0.90); GLUCOSE 112 MG/DL (70-104); POTASSIUM 3.2 MMOL/L (3.5-5.1); SODIUM 138 MMOL/L (135-145); eGFR 63 ML/MIN
[2021-10-05] MEDS: METHOCARBAMOL PO SCH ×2 (08:00→13:00)
[2021-10-05] MEDS: docusate sod 100mg capsule PO SCH (09:01)
[2021-10-05] MEDS: losartan 50mg tablet PO SCH (09:02)
[2021-10-05] MEDS: metoprolol tartrate 25mg tablet PO SCH (09:04)
[2021-10-05 09:32] LABS: BASOPHILS % (AUTO) 0.3 % (0-1); EOSINOPHILS # (AUTO) 0.1 X10'3 (0-0.9); EOSINOPHILS % (AUTO) 0.9 % (0-6); HEMATOCRIT 31.8 % (35.0-45.0); HEMOGLOBIN 10.7 g/dl (12.0-16.0); LYMPHOCYTES # (AUTO) 0.8 X10'3 (1.1-4.8); LYMPHOCYTES % (AUTO) 9.3 % (21-51); MEAN CORPUSCULAR HEMOGLOBIN 32.1 PG (27.0-31.0); MEAN CORPUSCULAR HGB CONC 33.6 g/dL (33.0-36.5); MEAN CORPUSCULAR VOLUME 95.6 FL (78-98); MEAN PLATELET VOLUME 8.6 FL (7.4-10.4); MONOCYTES # (AUTO) 0.7 X10'3 (0-0.9); MONOCYTES % (AUTO) 7.6 % (2-12); NEUTROPHILS # (AUTO) 7.3 X10'3 (1.8-7.7); NEUTROPHILS % (AUTO) 81.9 % (42-75); PLATELET COUNT 103 X10'3 (140-440); RED BLOOD COUNT 3.33 X10'6 (4.20-5.60); RED CELL DISTRIBUTION WIDTH 13.1 % (11.5-14.5)
[2021-10-05 10:00] VITALS: BP 136/74
[2021-10-05] MEDS ORDERED: clindamycin 150mg capsule PO SCH (14:00)
--- NOTE | 2021-10-05 17:20 | NUR ---
Discussed DC instructions and f/u care. Pt verbalized understanding. Pt dc'd via w/c with all belongings to private vehicle.
[2021-10-07] MEDS ORDERED: cyanocobalamin 1,000 mcg/ml inj IM SCH (13:50)
[2021-10-09] MEDS ORDERED: LOP25T PO (15:09)
[2021-10-09] MEDS ORDERED: LEVO50TA8 PO (15:09)
[2021-10-09] MEDS ORDERED: HYDR-3686 PO (15:09)
[2021-10-09] MEDS ORDERED: OMEP20CA16 PO (15:09)
[2021-10-10] MEDS ORDERED: SULF1TAB49 PO (11:33)
[2021-10-19] MEDS ORDERED: DOXY-243 PO (13:15)
[2021-10-19] MEDS ORDERED: LACT1CAP26 PO (13:15)
[2021-10-19] MEDS ORDERED: PANT40TA54 PO (13:15)
[2021-10-19] MEDS ORDERED: OXYC-145 PO (16:13)
== END 2021-10-05 17:25 | disposition home or self-care (01) ==
LOC: PAS 06:13 → ORTHO 4S 11:52
PROVIDERS: ADMIT Surgery; ATTEND Surgery
DX: K43.0 Incisional hernia with obstruction, without gangrene (principal); F41.9 Anxiety disorder, unspecified; G40.909 Epilepsy, unspecified, not intractable, without status epilepticus; I10 Essential (primary) hypertension; Z88.5 Allergy status to narcotic agent; Z88.1 Allergy status to other antibiotic agents; Z88.8 Allergy status to other drugs, medicaments and biological substances; Z87.891 Personal history of nicotine dependence; Z79.899 Other long term (current) drug therapy
CPT/HCPCS: 36415; 49566; 49568; 80048; 80053; 81003; 82948; 85025; 93005; 96365; 96366; 96367; 96375; 96376; C9290; G0378; J0131; J1100; J1170; J1720; J2250; J2405; J2704; J2710; J3010; J3490; J7030; J7120; A4615; A4618; A7000